=== PATIENT | female | born 1950 | race Caucasian/White ===

== ENCOUNTER 2017-09-18 19:33 | Emergency (ER) | payer OTHER ==
[2017-09-18] MEDS ORDERED: TETANUS & DIPHTHERIA TOX,ADULT 0.5 ML VIAL ONE (20:17)
[2017-09-18] MEDS ORDERED: LIDOCAINE 1% 20 ML MDV ONE (20:17)
[2017-09-18] MEDS ORDERED: DOXYCYCLINE 100 MG CAP PO ONE (20:38)
--- NOTE | 2017-09-18 20:43 | EDPHYS ---
Physician Documentation [facility] Name: Chiara Reyes Age: 67 yrs Sex: Female : 1950 Arrival Date: 09/18/2017 Time: 19:36 Bed 9 Private MD: Sebastian Cormier B ED Physician Arley Webb HPI: 09/18 20:22 This 67 yrs old Female presents to ER via Ambulatory with complaints of snw Finger Injury, Fish hook. 20:22 Trauma demographics: Location of Injury: The injury occurred [facility]. snw Historical: - Allergies: 19:55 Aspirin; lk1 - PMHx: 19:55 Glaucoma; Hepatitis; lk1 - PSHx: 19:55 Hysterectomy; right shoulder; Carpal Tunnel Repair; Breast biopsy; lk1 - Immunization history:: Adult Immunizations up to date, Last tetanus immunization: > 10 years ago. - Social history:: Smoking status: Patient/guardian denies using tobacco. ROS: 20:22 Constitutional: Negative for fever, chills, and weight loss, Eyes: Negative for injury, snw pain, redness, and discharge, ENT: Negative for injury, pain, and discharge, Neck: Negative for injury, pain, and swelling, Cardiovascular: Negative for chest pain, palpitations, and edema, Respiratory: Negative for shortness of breath, cough, wheezing, and pleuritic chest pain, Abdomen/GI: Negative for abdominal pain, nausea, vomiting, diarrhea, and constipation, Back: Negative for injury and pain, : Negative for injury, bleeding, discharge, and swelling, MS/Extremity: Negative for injury and deformity, Neuro: Negative for headache, weakness, numbness, tingling, and seizure, Psych: Negative for depression, anxiety, suicide ideation, homicidal ideation, and hallucinations. 20:22 Skin: Positive for foreign body to right thumb. Exam: 20:21 Constitutional: This is a well developed, well nourished patient who is awake, alert, snw and in no acute distress. Head/Face: Normocephalic, atraumatic. Eyes: Pupils equal round and reactive to light, extra-ocular motions intact. Lids and lashes normal. Conjunctiva and sclera are non-icteric and not injected. Cornea within normal limits. Periorbital areas with no swelling, redness, or edema. ENT: Nares patent. No nasal discharge, no septal abnormalities noted. Tympanic membranes are normal and external auditory canals are clear. Oropharynx with no redness, swelling, or masses, exudates, or evidence of obstruction, uvula midline. Mucous membranes moist. Neck: Trachea midline, no thyromegaly or masses palpated, and no cervical lymphadenopathy. Supple, full range of motion without nuchal rigidity, or vertebral point tenderness. No Meningismus. Chest/axilla: Normal chest wall appearance and motion. Nontender with no deformity. No lesions are appreciated. Cardiovascular: Regular rate and rhythm with a normal S1 and S2. No gallops, murmurs, or rubs. Normal PMI, no JVD. No pulse deficits. Respiratory: Lungs have equal breath sounds bilaterally, clear to auscultation and percussion. No rales, rhonchi or wheezes noted. No increased work of breathing, no retractions or nasal flaring. Abdomen/GI: Soft, non-tender, with normal bowel sounds. No distension or tympany. No guarding or rebound. No evidence of tenderness throughout. Back: No spinal tenderness. No costovertebral tenderness. Full range of motion. MS/ Extremity: Pulses equal, no cyanosis. Neurovascular intact. Full, normal range of motion. Neuro: Awake and alert, GCS 15, oriented to person, place, time, and situation. Cranial nerves II-XII grossly intact. Motor strength 5/5 in all extremities. Sensory grossly intact. Cerebellar exam normal. Normal gait. 20:21 Skin: Appearance: normal except for affected area, injury, puncture(s), that are superficial, of the palmar aspect of distal phalanx of right thumb. Vital Signs: 19:56 BP 175 / 90; Pulse 76; Resp 15; Temp 98.0(TE); Pulse Ox 96% on R/A; Weight 72.57 kg lk1 (R); Height 5 ft. 3 in. (160.02 cm) (R); Pain 4/10; 19:56 Body Mass Index 28.34 (72.57 kg, 160.02 cm) lk1 Procedures: 20:24 Foreign Body Removal: a fishhook, from the right palmar aspect of distal phalanx of snw right thumb, by needle, The patient tolerated the removal well. MDM: 20:14 Patient medically screened. sn 20:23 Data reviewed: vital signs, nurses notes. Data interpreted: Pulse oximetry: on room air snw is 96 %. Interpretation: acceptable. Counseling: I had a detailed discussion with the patient and/or guardian regarding: the historical points, exam findings, and any diagnostic results supporting the discharge/admit diagnosis, the presence of at least one elevated blood pressure reading (>120/80) during this emergency department visit, the need for outpatient follow up, for definitive care, to return to the emergency department if symptoms worsen or persist or if there are any questions or concerns that arise at home. Special discussion: I discussed in detail with the patient the higher chance of wound infection based on his presenting history. Based on the history and exam findings, there is no indication for further emergent testing or inpatient evaluation. I discussed with the patient/guardian the need to see the primary care provider for further evaluation of the symptoms. Administered Medications: 20:34 Drug: Tetanus-Diphtheria Toxoid Adult 0.5 ml {[employer]: [employer]. Exp: aj1 12/04/2019. Lot #: [id number]. } Route: IM; Site: right deltoid; 20:56 Follow up: Response: No adverse reaction aj1 20:34 Drug: Lidocaine (1 %) 5 mg {Note: Given by Luna Felix NP.} Route: Infiltration; aj1 20:56 Follow up: Response: No adverse reaction aj1 20:45 Drug: Doxycycline 100 mg Route: PO; aj1 20:56 Follow up: Response: No adverse reaction aj Disposition: 09/18/17 20:43 Discharged to Home. Impression: Puncture wound with foreign body of finger without damage to nail. - Condition is Stable. - Discharge Instructions: Fish Hook Removal. - Prescriptions for Ultram 50 mg Oral Tablet - take 1 tablet by ORAL route every 6 hours As needed; 20 tablet. Doxycycline Hyclate 100 mg Oral Tablet - take 1 tablet by ORAL route every 12 hours; 20 tablet. - Medication Reconciliation Form, Thank You Letter, Antibiotic Education, Prescription Opioid Use form. - Follow up: Sebastian Cormier; When: 2 - 3 days; Reason: Recheck today's complaints, Continuance of care, Re-evaluation by your physician. Follow up: Emergency Department; When: As needed; Reason: Worsening of condition. Addendum: 09/21/2017 07:41 Co-signature as Attending Physician, Arley Webb MD I agree with the assessment and c benton plan of care. Signatures: Leelee Pardo, RN RN aj1 Arley Webb MD MD cha Therrien, Shelly, TELEGRAPHIC SERVICE DISPATCHER-C TELEGRAPHIC SERVICE DISPATCHER-Csnw Gail King, RN RN lk1 Corrections: (The following items were deleted from the chart) 09/18 20:56 20:43 09/18/2017 20:43 Discharged to Home. Impression: Puncture wound with foreign body aj1 of finger without damage to nail. Condition is Stable. Discharge Instructions: Fish Hook Removal. Prescriptions for Ultram 50 mg Oral Tablet - take 1 tablet by ORAL route every 6 hours As needed; 20 tablet, Doxycycline Hyclate 100 mg Oral Tablet - take 1 tablet by ORAL route every 12 hours; 20 tablet. and Forms are Medication Reconciliation Form, Thank You Letter, Antibiotic Education, Prescription Opioid Use. Follow up: Sebastian Cormier; When: 2 - 3 days; Reason: Recheck today's complaints, Continuance of care, Re-evaluation by your physician. Follow up: Emergency Department; When: As needed; Reason: Worsening of condition. snw
--- NOTE | 2017-09-18 20:43 | ER ---
Nurse's Notes [facility] Name: Chiara Reyes Age: 67 yrs Sex: Female : 1950 Arrival Date: 09/18/2017 Time: 19:36 Bed 9 Private MD: Sebastian Cormier B Diagnosis: Puncture wound with foreign body of finger without damage to nail Presentation: 09/18 19:53 Presenting complaint: Patient states: "I stabbed the hook in my thumb when I was lk1 fishing". Transition of care: patient was not received from another setting of care. Onset of symptoms was September 18, 2017 at 18:45. Initial Sepsis Screen: Does the patient meet any 2 criteria? No. Patient's initial sepsis screen is negative. Does the patient have a suspected source of infection? No. Patient's initial sepsis screen is negative. Care prior to arrival: None. 19:53 Method Of Arrival: Ambulatory lk1 19:53 Acuity: MARY ELLEN 4 lk1 Triage Assessment: 19:56 General: Appears in no apparent distress. Behavior is calm, cooperative, appropriate lk1 for age. Pain: Complains of pain in palmar aspect of distal phalanx of right thumb Pain currently is 4 out of 10 on a pain scale. Musculoskeletal: Swelling absent. Injury Description: Puncture. Historical: - Allergies: 19:55 Aspirin; lk1 - PMHx: 19:55 Glaucoma; Hepatitis; lk1 - PSHx: 19:55 Hysterectomy; right shoulder; Carpal Tunnel Repair; Breast biopsy; lk1 - Immunization history:: Adult Immunizations up to date, Last tetanus immunization: > 10 years ago. - Social history:: Smoking status: Patient/guardian denies using tobacco. Screenin:52 Abuse screen: Denies threats or abuse. Denies injuries from another. Nutritional aj1 screening: No deficits noted. Tuberculosis screening: No symptoms or risk factors identified. 20:56 Fall Risk None identified. aj1 Assessment: 20:52 General: Appears in no apparent distress. uncomfortable, Behavior is calm, cooperative, aj1 appropriate for age. Pain: Complains of pain in palmar aspect of distal phalanx of right thumb. Neuro: Level of Consciousness is awake, alert, obeys commands, Oriented to person, place, time, situation, Speech is normal, Facial symmetry appears normal. Cardiovascular: Patient's skin is warm and dry. Respiratory: Airway is patent Respiratory effort is even, unlabored, Respiratory pattern is regular, symmetrical. GI: No signs and/or symptoms were reported involving the gastrointestinal system. : No signs and/or symptoms were reported regarding the genitourinary system. EENT: No signs and/or symptoms were reported regarding the EENT system. Derm: Skin is pink, warm \\T\\ dry. Musculoskeletal: Range of motion: intact in all extremities. Injury Description: Foreign body is located palmar aspect of distal phalanx of right thumb is fish hook. Vital Signs: 19:56 BP 175 / 90; Pulse 76; Resp 15; Temp 98.0(TE); Pulse Ox 96% on R/A; Weight 72.57 kg lk1 (R); Height 5 ft. 3 in. (160.02 cm) (R); Pain 4/10; 19:56 Body Mass Index 28.34 (72.57 kg, 160.02 cm) lk1 ED Course: 19:36 Patient arrived in ED. es 19:36 Sebastian Cormier MD is Private Physician. es 19:54 Triage completed. lk1 19:58 Arm band placed on left wrist. lk1 19:59 Leelee Pardo RN is Primary Nurse. aj1 20:13 Yanique Felix FNP-C is PHCP. snw 20:13 Arley Webb MD is Attending Physician. snw 20:43 Sebastian Cormier MD is Referral Physician. snw 20:52 Patient has correct armband on for positive identification. Call light in reach. aj1 20:52 No provider procedures requiring assistance completed. Patient did not have IV access aj1 during this emergency room visit. Wound care: to puncture located on palmar aspect of distal phalanx of right thumb was cleaned with Hibiclens, dressed with 4X4s. Administered Medications: 20:34 Drug: Tetanus-Diphtheria Toxoid Adult 0.5 ml {[place]: [employer]. Exp: aj1 12/04/2019. Lot #: [id number]. } Route: IM; Site: right deltoid; 20:56 Follow up: Response: No adverse reaction aj1 20:34 Drug: Lidocaine (1 %) 5 mg {Note: Given by Luna Felix NP.} Route: Infiltration; aj1 20:56 Follow up: Response: No adverse reaction aj1 20:45 Drug: Doxycycline 100 mg Route: PO; aj1 20:56 Follow up: Response: No adverse reaction aj1 Outcome: 20:43 Discharge ordered by . anusha 20:52 Discharged to home ambulatory. aj1 20:52 Condition: good 20:52 Discharge instructions given to patient, Instructed on discharge instructions, follow up and referral plans. medication usage, Demonstrated understanding of instructions, follow-up care, medications, Prescriptions given X 2. 20:56 Patient left the ED. aj1 Signatures: Leelee Pardo, RN RN aj1 Yanique Felix, TELEVISION CABINET FINISHER-C TELEVISION CABINET FINISHER-Csnw Elenita Lizarraga Leah, RN RN lk1
[2017-09-18 21:19] VITALS: BP 175/90; TEMP 98; O2SAT 96
== END 2017-09-18 20:56 | disposition home or self-care (01) ==
LOC: ER 19:33
DX: S61.041A Puncture wound with foreign body of right thumb without damage to nail, initial encounter (principal); W26.8XXA Contact with other sharp object(s), not elsewhere classified, initial encounter; W45.8XXA Other foreign body or object entering through skin, initial encounter; Y93.89 Activity, other specified; Y92.832 Beach as the place of occurrence of the external cause; Z23 Encounter for immunization
CPT/HCPCS: 90714; 99283

== ENCOUNTER 2018-05-29 09:43 | Observation (INO) | payer OTHER ==
--- OUTSIDE RECORDS SUMMARY | 2018-05-29 09:45 | XMS REPORT | Clinical Summary ---
:1950 Author Organization [facility] Address [address] [place] [address] Care Team Providers Name Role Phone Sebastian Cormier MD Primary Care Provider Allergies Active Allergy Reactions Severity Noted Date Comments Aspirin Hives 02/11/2018 Medications Medication Sig Dispensed Refills Start Date End Date Status timolol (TIMOPTIC) 2 (two) 0 01/18/2018 Active 0.5 % ophthalmic times daily solution . brimonidine Apply to 0 Active tartrate/timolol eye(s) 2 (COMBIGAN OPHT) (two) times daily. pantoprazole Take 40 mg 0 12/28/2017 03/04/2018 Discontinued (PROTONIX) 40 MG by mouth tablet daily . rifAXIMin 550 mg Tab Take 550 mg 0 03/04/2018 Discontinued by mouth 2 (two) times daily. 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 We will treat with Vosevi for 12 weeks (Among the 22 patients who had a prior treatment failure with an NS5A inhibitor -containing regimen, 91% (20/22) achieved SVR); Discontinue PPI during the therapy Other cirrhosis of liver 02/11/2018 Last Assessment & Plan: Not biopsy proven. 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 Compensated. Will send labs to exclude other causes of liver disease, and will check labs to calculate MELD score. Will review MRI done outside. Advised total abstinence from alcohol. Portal hypertension 02/11/2018 Last Assessment & Plan: Manifested by thrombocytopenia, and small esophageal varices. Will continue have variceal screening with Dr. Zepeda as per guidelines. Screening for cancer 02/11/2018 Last Assessment & Plan: Cirrhosis, regardless of etiology, is a risk factor for development of hepatocellular carcinoma. The annual incidence of HCC varies from 1.5-7%. Thus, we recommend surveillance for HCC be performed using contrast MRI or CT imaging and alphafetoprotein every 6 months. Screening for endocrine/metabolic/immunity disorders 02/11/2018 Last Assessment & Plan: Serological tests will be completed to determine the presence of immunity to hepatitis A and B. If found susceptible she will be referred to her primary care provider to consider the administration of the appropriate vaccines. Chronic fatigue 02/11/2018 Encounters Date Type Specialty Care Team Description 05/25/2018 Telephone Hepatology Rigo Harmon RESCHEDULE APPT 04/07/2018 Office Visit Hepatology Irene Navarro MD Cirrhosis of liver without ascites, unspecified hepatic cirrhosis type (HCC) ( Primary Dx); Elle Meza, Elevated AFP; PA-C Chronic hepatitis C without hepatic coma (HCC); Screening for cancer 03/09/2018 Telephone Hepatology Rigo Harmon CHANGE TREATMENT SCHEDULE 03/05/2018 Telephone Hepatology Sim Germain, result and to start HCV BLEACH RANGE OPERATOR therapy 03/04/2018 Office Visit Hepatology Irene Navarro MD Chronic hepatitis C without hepatic coma (HCC) (Primary Dx); Sim Germain, Screening for cancer; BLEACH RANGE OPERATOR Screening for endocrine/metabolic/immunity disorders; Other cirrhosis of liver (HCC) 03/03/2018 Telephone Hepatology Rigo Harmon Hepatitis C 03/03/2018 Telephone Hepatology Elle Meza, Follow-up PA-C 02/22/2018 Telephone Hepatology Rigo Harmon VOSEVI DELIVERY 02/19/2018 Abstract Hepatology Rigo Harmon 02/11/2018 Office Visit Hepatology Irene Navarro MD Chronic hepatitis C without hepatic coma (HCC); Other cirrhosis of liver (HCC); Portal hypertension (HCC); Screening for cancer; Screening for endocrine/metabolic/immunity disorders; Chronic fatigue 02/11/2018 Telephone Hepatology Rigo Harmon Hepatitis C 02/02/2018 Telephone Hepatology Catherine Ching Appointment after 05/28/2017 Family History Medical History Relation Name Comments Leukemia Brother Breast cancer Mother Relation Name Status Comments Brother Mother Social History Tobacco Use Types Packs/Day Years Used Date Former Smoker Smokeless Tobacco: Never Used Alcohol Use Drinks/Week oz/Week Comments Yes Sex Assigned at Date Recorded Not on file Job Start Date Occupation Industry Not on file Not on file Not on file Travel History Travel Start Travel End No recent travel history available. Last Filed Vital Signs Vital Sign Reading Time Taken Blood Pressure 161/87 04/07/2018 12:14 PM [employer] Pulse 60 04/07/2018 12:14 PM [employer] Temperature 36.7 C (98.1 F) 04/07/2018 12:14 PM [employer] Respiratory Rate 17 04/07/2018 12:14 PM [employer] Oxygen Saturation 97% 04/07/2018 12:14 PM [employer] Inhaled Oxygen Concentration - - Weight 72.3 kg (159 lb 4.8 oz) 04/07/2018 12:14 PM [employer] Height 160 cm (5' 3") 04/07/2018 12:14 PM [employer] Body Mass Index 28.22 04/07/2018 12:14 PM [employer] Plan of Treatment Date Type Specialty Care Team Description 06/10/2018 Office Visit Hepatology Resource, [facility] 09/01/2018 Office Visit Hepatology Resource, [facility] 11/24/2018 Office Visit Hepatology Resource, [facility] Health Maintenance Due Date Last Done Comments INFLUENZA VACCINE 02/01/2018 Procedures Procedure Name Priority Date/Time Associated Diagnosis Comments BASIC METABOLIC PANEL Routine 05/28/2018 3:41 Elevated AFP Results for this (7) PM [employer] Cirrhosis of liver procedure are in without ascites, the results unspecified hepatic section. cirrhosis type (HCC) Chronic hepatitis C without hepatic coma (HCC) Screening for cancer HEPATIC FUNCTION PANEL Routine 05/28/2018 3:41 Elevated AFP Results for this PM [employer] Cirrhosis of liver procedure are in without ascites, the results unspecified hepatic section. cirrhosis type (HCC) Chronic hepatitis C without hepatic coma (HCC) Screening for cancer CBC W/PLT COUNT & AUTO Routine 05/28/2018 3:41 Elevated AFP Results for this DIFFERENTIAL PM [employer] Cirrhosis of liver procedure are in without ascites, the results unspecified hepatic section. cirrhosis type (HCC) Chronic hepatitis C without hepatic coma (HCC) Screening for cancer PROTHROMBIN TIME/INR Routine 05/28/2018 3:41 Elevated AFP Results for this PM [employer] Cirrhosis of liver procedure are in without ascites, the results unspecified hepatic section. cirrhosis type (HCC) Chronic hepatitis C without hepatic coma (HCC) Screening for cancer BASIC METABOLIC PANEL Routine 04/30/2018 9:41 Elevated AFP Results for this (7) AM [employer] DEVELOPER Cirrhosis of liver procedure are in without ascites, the results unspecified hepatic section. cirrhosis type (HCC) Chronic hepatitis C without hepatic coma (HCC) Screening for cancer HEPATIC FUNCTION PANEL Routine 04/30/2018 9:41 Elevated AFP Results for this AM [employer] Cirrhosis of liver procedure are in without ascites, the results unspecified hepatic section. cirrhosis type (HCC) Chronic hepatitis C without hepatic coma (HCC) Screening for cancer CBC W/PLT COUNT & AUTO Routine 04/30/2018 9:41 Elevated AFP Results for this DIFFERENTIAL AM [employer]EL[employer] Cirrhosis of liver procedure are in without ascites, the results unspecified hepatic section. cirrhosis type (HCC) Chronic hepatitis C without hepatic coma (HCC) Screening for cancer PROTHROMBIN TIME/INR Routine 04/30/2018 9:41 Elevated AFP Results for this AM [employer]EL[employer] Cirrhosis of liver procedure are in without ascites, the results unspecified hepatic section. cirrhosis type (HCC) Chronic hepatitis C without hepatic coma (HCC) Screening for cancer ALPHA FETOPROTEIN, L3 Routine 04/30/2018 9:41 Elevated AFP Results for this PERCENT AM [employer] DEVEL[employer] Cirrhosis of liver procedure are in without ascites, the results unspecified hepatic section. cirrhosis type (HCC) Chronic hepatitis C without hepatic coma (HCC) Screening for cancer BASIC METABOLIC PANEL Routine 04/02/2018 9:13 Chronic hepatitis C Results for this (7) AM [employer] DEVELOPER without hepatic coma procedure are in (HCC) the results section. HEPATIC FUNCTION PANEL Routine 04/02/2018 9:13 Chronic hepatitis C Results for this AM [employer] DEVELOPER without hepatic coma procedure are in (HCC) the results section. CBC W/PLT COUNT & AUTO Routine 04/02/2018 9:13 Chronic hepatitis C Results for this DIFFERENTIAL AM [employer] DEVELOPER without hepatic coma procedure are in (HCC) the results section. PROTHROMBIN TIME/INR Routine 04/02/2018 9:13 Chronic hepatitis C Results for this AM [employer] DEVELOPER without hepatic coma procedure are in (HCC) the results section. HEPATITIS C PCR, Routine 04/02/2018 9:13 Chronic hepatitis C Results for this QUANTITATIVE AM [employer] DEVELOPER without hepatic coma procedure are in (HCC) the results section. CBC W/PLT COUNT & AUTO Routine 03/04/2018 5:09 Chronic hepatitis C Results for this DIFFERENTIAL PM CDT without hepatic coma procedure are in (HCC) the results section. CBC W/PLT COUNT & AUTO Routine 03/04/2018 5:09 Chronic hepatitis C Results for this DIFFERENTIAL PM CDT without hepatic coma procedure are in (HCC) the results section. ALPHA FETOPROTEIN Routine 03/04/2018 3:14 Chronic hepatitis C Results for this (AFP), TUMOR MARKER PM CDT without hepatic coma procedure are in (HCC) the results section. PROTHROMBIN TIME/INR Routine 03/04/2018 3:14 Chronic hepatitis C Results for this PM CDT without hepatic coma procedure are in (HCC) the results section. HEPATIC FUNCTION PANEL Routine 03/04/2018 3:14 Chronic hepatitis C Results for this PM CDT without hepatic coma procedure are in (HCC) the results section. BASIC METABOLIC PANEL Routine 03/04/2018 3:14 Chronic hepatitis C Results for this (7) PM CDT without hepatic coma procedure are in (HCC) the results section. CBC W/PLT COUNT & AUTO Routine 02/11/2018 1:13 Chronic hepatitis C Results for this DIFFERENTIAL PM CDT without hepatic coma procedure are in (HCC) the results Other cirrhosis of section. liver (HCC) Portal hypertension (HCC) Screening for cancer Screening for endocrine/metabolic/ immunity disorders LIVER FIBROSIS, Routine 02/11/2018 1:13 Chronic hepatitis C FIBROTEST-ACTITEST PM CDT without hepatic coma PANEL (HCC) Other cirrhosis of liver (HCC) HIV-1 ANTIGEN WITH Routine 02/11/2018 1:13 Chronic hepatitis C Results for this HIV-1/2 ANTIBODY PM CDT without hepatic coma procedure are in (HCC) the results Other cirrhosis of section. liver (HCC) TSH Routine 02/11/2018 1:13 Chronic fatigue Results for this PM CDT procedure are in the results section. HEPATITIS C GENOTYPE Routine 02/11/2018 1:13 Chronic hepatitis C Results for this PM CDT without hepatic coma procedure are in (HCC) the results Other cirrhosis of section. liver (HCC) Portal hypertension (HCC) Screening for cancer Screening for endocrine/metabolic/ immunity disorders HEPATITIS C PCR, Routine 02/11/2018 1:13 Chronic hepatitis C Results for this QUANTITATIVE PM CDT without hepatic coma procedure are in (HCC) the results Other cirrhosis of section. liver (HCC) Portal hypertension (HCC) Screening for cancer Screening for endocrine/metabolic/ immunity disorders ALPHA FETOPROTEIN Routine 02/11/2018 1:13 Chronic hepatitis C Results for this (AFP), TUMOR MARKER PM CDT without hepatic coma procedure are in (HCC) the results Other cirrhosis of section. liver (HCC) Portal hypertension (HCC) Screening for cancer Screening for endocrine/metabolic/ immunity disorders MITOCHONDRIA M2 Routine 02/11/2018 1:13 Chronic hepatitis C Results for this ANTIBODY (IGG) PM CDT without hepatic coma procedure are in (HCC) the results Other cirrhosis of section. liver (HCC) Portal hypertension (HCC) Screening for cancer Screening for endocrine/metabolic/ immunity disorders ACTIN (SMOOTH MUSCLE) Routine 02/11/2018 1:13 Chronic hepatitis C Results for this ANTIBODY, IGG PM CDT without hepatic coma procedure are in (HCC) the results Other cirrhosis of section. liver (HCC) Portal hypertension (HCC) Screening for cancer Screening for endocrine/metabolic/ immunity disorders ANTI-NUCLEAR ANTIBODY Routine 02/11/2018 1:13 Chronic hepatitis C Results for this (KELSIE) PM CDT without hepatic coma procedure are in (HCC) the results Other cirrhosis of section. liver (HCC) Portal hypertension (HCC) Screening for cancer Screening for endocrine/metabolic/ immunity disorders CERULOPLASMIN Routine 02/11/2018 1:13 Chronic hepatitis C Results for this PM CDT without hepatic coma procedure are in (HCC) the results Other cirrhosis of section. liver (HCC) Portal hypertension (HCC) Screening for cancer Screening for endocrine/metabolic/ immunity disorders [id number], Routine 02/11/2018 1:13 Chronic hepatitis C Results for this SERUM PM CDT without hepatic coma procedure are in (HCC) the results Other cirrhosis of section. liver (HCC) Portal hypertension (HCC) Screening for cancer Screening for endocrine/metabolic/ immunity disorders FERRITIN Routine 02/11/2018 1:13 Chronic hepatitis C Results for this PM CDT without hepatic coma procedure are in (HCC) the results Other cirrhosis of section. liver (HCC) Portal hypertension (HCC) Screening for cancer Screening for endocrine/metabolic/ immunity disorders IRON, TIBC, % SAT. Routine 02/11/2018 1:13 Chronic hepatitis C Results for this (WITHOUT FERRITIN) PM CDT without hepatic coma procedure are in (HCC) the results Other cirrhosis of section. liver (HCC) Portal hypertension (HCC) Screening for cancer Screening for endocrine/metabolic/ immunity disorders HEPATITIS C ANTIBODY Routine 02/11/2018 1:13 Chronic hepatitis C Results for this PM CDT without hepatic coma procedure are in (HCC) the results Other cirrhosis of section. liver (HCC) Portal hypertension (HCC) Screening for cancer Screening for endocrine/metabolic/ immunity disorders HEPATITIS B CORE Routine 02/11/2018 1:13 Chronic hepatitis C Results for this ANTIBODY, TOTAL PM CDT without hepatic coma procedure are in (HCC) the results Other cirrhosis of section. liver (HCC) Portal hypertension (HCC) Screening for cancer Screening for endocrine/metabolic/ immunity disorders HEPATITIS B SURFACE Routine 02/11/2018 1:13 Chronic hepatitis C Results for this ANTIBODY PM CDT without hepatic coma procedure are in (HCC) the results Other cirrhosis of section. liver (HCC) Portal hypertension (HCC) Screening for cancer Screening for endocrine/metabolic/ immunity disorders HEPATITIS B SURFACE Routine 02/11/2018 1:13 Chronic hepatitis C Results for this ANTIGEN PM CDT without hepatic coma procedure are in (HCC) the results Other cirrhosis of section. liver (HCC) Portal hypertension (HCC) Screening for cancer Screening for endocrine/metabolic/ immunity disorders HEPATITIS A ANTIBODY, Routine 02/11/2018 1:13 Chronic hepatitis C Results for this IGM PM CDT without hepatic coma procedure are in (HCC) the results Other cirrhosis of section. liver (HCC) Portal hypertension (HCC) Screening for cancer Screening for endocrine/metabolic/ immunity disorders HEPATITIS A ANTIBODY, Routine 02/11/2018 1:13 Chronic hepatitis C Results for this IGG PM CDT without hepatic coma procedure are in (HCC) the results Other cirrhosis of section. liver (HCC) Portal hypertension (HCC) Screening for cancer Screening for endocrine/metabolic/ immunity disorders PROTHROMBIN TIME/INR Routine 02/11/2018 1:13 Chronic hepatitis C Results for this PM CDT without hepatic coma procedure are in (HCC) the results Other cirrhosis of section. liver (HCC) Portal hypertension (HCC) Screening for cancer Screening for endocrine/metabolic/ immunity disorders CBC W/PLT COUNT & AUTO Routine 02/11/2018 1:13 Chronic hepatitis C Results for this DIFFERENTIAL PM CDT without hepatic coma procedure are in (HCC) the results Other cirrhosis of section. liver (HCC) Portal hypertension (HCC) Screening for cancer Screening for endocrine/metabolic/ immunity disorders BILIRUBIN, DIRECT Routine 02/11/2018 1:13 Chronic hepatitis C Results for this PM CDT without hepatic coma procedure are in (HCC) the results Other cirrhosis of section. liver (HCC) Portal hypertension (HCC) Screening for cancer Screening for endocrine/metabolic/ immunity disorders COMPREHENSIVE Routine 02/11/2018 1:13 Chronic hepatitis C Results for this METABOLIC PANEL PM CDT without hepatic coma procedure are in (HCC) the results Other cirrhosis of section. liver (HCC) Portal hypertension (HCC) Screening for cancer Screening for endocrine/metabolic/ immunity disorders after 05/28/2017 Results Pro-time/INR (05/28/2018 3:41 PM BACKEND JAVA DEVELOPER)Only the most recent of5 resultswithin the time period is included. INR 1.1 [facility] Comment: Reference Range 0.9-1.1 Moderate-intensity Warfarin Therapy 2.0-3.0 Higher-intensity Warfarin Therapy 3.0-4.0 PT 11.7 (H) 9.0 - 11.5 sec [facility] Comment: For more information on this test, go to: http://education.[employer]/faq/JIY656 Specimen Blood Narrative Performed At FASTING:NO [facility] FASTING: NO Resulting Agency Comment Performing Organization Information: Site ID: [id number] Name: [facility] Address: [address] [place] [phone] Director: Dina Gan Performing Organization Address City/State/[facility] Cent[facility] Phone Number [facility] [address] [place] [address] [facility] CBC with platelet count + automated diff (05/28/2018 3:41 PM BACKEND JAVA DEVELOPER)Only the most recent of3 resultswithin the time period is included. WBC 6.5 3.8 - 10.8 Thousand/uL [facility] RBC 3.78 (L) 3.80 - 5.10 Million/uL [facility] Hemoglobin 13.0 11.7 - 15.5 g/dL [facility] Hematocrit 37.6 35.0 - 45.0 % [facility] MCV 99.5 80.0 - 100.0 fL [facility] MCH 34.4 (H) 27.0 - 33.0 pg [facility] MCHC 34.6 32.0 - 36.0 g/dL [facility] RDW 11.6 11.0 - 15.0 % [facility] Platelets 97 (L) 140 - 400 Thousand/uL [facility] MPV 11.0 7.5 - 12.5 fL [facility] # Neutros 2,347 1,500 - 7,800 cells/uL [facility] # Lymphs 3,172 850 - 3,900 cells/uL [facility] # Monos 696 200 - 950 cells/uL [facility] # Eos 228 15 - 500 cells/uL [facility] # Baso 59 0 - 200 cells/uL [facility] % Neutros 36.1 % [facility] % Lymphs 48.8 % [facility] % Monos 10.7 % [facility] % Eos 3.5 % [facility] % Baso 0.9 % [facility] Specimen Blood Narrative Performed At FASTING:NO [facility] FASTING: NO Resulting Agency Comment Performing Organization Information: Site ID: [id number] Name: [facility] Address: [address] [place] [phone] Director: Dina Gan Performing Organization Address [facility] Centercowa Phone Number [facility] [address] [place] [address] [facility] Hepatic function panel (05/28/2018 3:41 PM BACKEND JAVA DEVELOPER)Only the most recent of4 resultswithin the time period is included. Protein, Total, Serum 7.6 6.1 - 8.1 g/dL [facility] Albumin 3.9 3.6 - 5.1 g/dL [facility] GLOBULIN ([facility]) 3.7 1.9 - 3.7 g/dL (calc) [facility] Albumin Globulin Ratio 1.1 1.0 - 2.5 (calc) [facility] Bilirubin, Total 1.8 (H) 0.2 - 1.2 mg/dL [facility] Bilirubin, Direct 0.6 (H) < OR=0.2 mg/dL [facility] Bilirubin, Indirect 1.2 0.2 - 1.2 mg/dL (calc) [facility] Alkaline Phosphatase, S 105 33 - 130 U/L [facility] AST (SGOT) 34 10 - 35 U/L [facility] ALT (SGPT) 19 6 - 29 U/L [facility] Specimen Blood Narrative Performed At FASTING:NO [facility] FASTING: NO Resulting Agency Comment Performing Organization Information: Site ID: [id number] Name: [facility] Address: [address] [place] [phone] Director: Dina Gan Performing Organization Address [facility] Phone Number [employer] [address] [place] [address] [facility] Basic Metabolic Panel (05/28/2018 3:41 PM BACKEND JAVA DEVELOPER)Only the most recent of4 resultswithin the time period is included. Glucose 100 65 - 139 mg/dL [facility] Comment: Non-fasting reference interval BUN 13 7 - 25 mg/dL [facility] Creatinine 0.56 0.50 - 0.99 mg/dL [facility] Comment: For patients >49 years of age, the reference limit for Creatinine is approximately 13% higher for people identified as -Trinidadian. eGFR If NonAfricn Am 97 > OR=60 mL/min/1.73m2 [facility] eGFR If Africn Am 113 > OR=60 mL/min/1.73m2 [facility] BUN/Creatinine Ratio NOT APPLICABLE 6 - 22 (calc) [facility] Sodium 135 135 - 146 mmol/L [facility] Potassium, Serum 4.0 3.5 - 5.3 mmol/L [facility] Chloride 103 98 - 110 mmol/L [facility] Carbon Dioxide, Total 27 20 - 32 mmol/L [facility] Calcium, Serum 9.2 8.6 - 10.4 mg/dL [facility] Specimen Blood Narrative Performed At FASTING:NO [facility] FASTING: NO Resulting Agency Comment Performing Organization Information: Site ID: [id number] Name: [facility] Address: [address] [place] [phone] Director: Dina Gan Performing Organization Address City/State/Zipcode Phone Number [facility] [address] [place] [address] [facility] Alpha fetoprotein, L3 percent ([facility]) (04/30/2018 9:41 AM BACKEND JAVA DEVELOPER) AFP, Serum, Tumor Marker 19.8 (H) 1.6 - 4.5 ng/mL RAYEZ AFP-L3%, Serum 3.0 0.5 - 9.9 % [facility] Comment: The micro-total analysis system ([employer]) employs microchip capillary electrophoresis to quantitatively measure AFP and AFP-L3% by immunochemical techniques. The assay principle involves DNA-coupled antibodies and dye labeled antibodies, which react with proteins in liquid phase within the microchannels. Both analytes are quantified using laser-induced fluorescence. Instrument and associated reagents are supplied by [employer] [place], [place], [place]. Patients with elevated AFP-L3% values (>=10%) have been shown to have an increased risk of developing hepatocellular carcinoma (HCC). In a selected group of patients, the risk of developing HCC was 48.8% with an elevated AFP-L3% and was 7.0% with a negative AFP-L3% result. Limitations of Procedure: 1. The AFP-L3% value is not calculated when the AFP-L3 concentration is below 0.3 ng/mL. In such cases the AFP-L3% result field will indicate "NO VALUE DETERMINED" 2. Heterophilic antibodies in human serum can react with the immunoglobulins included in the assay components causing interference with in vitro immunoassays. Samples from patients routinely exposed to animals or animal serum products can demonstrate this type of interference and can potentially cause an anomalous result. The Victrix System has been formulated to minimize the risk of the interference; however, potential interactions between rare sera and ingredients can occur. 3. For diagnostic purposes, the results obtained from this assay should always be used and interpreted in conjunction with clinical examination, patient medical history, and other findings. 4. can cause high values of AFP-L3% and AFP is not interpretable in females. 5. AFP producing tumors other than HCC can show high values of AFP-L3% and AFP. 6. Samples from patients having acute hepatitis and fulminant hepatitis can show high values of AFP-L3% and AFP. 7. It is recommended that this assay be used in conjunction with imaging studies for clinical diagnosis. 8. Liver diseases caused by other etiologies such as alcoholic liver disease, hemachromatosis, Edson's disease, autoimmune hepatitis and steatohepatisis have not been studied with the assay. 9. The assay is linear for AFP concentration of 0.3 to 1000 ng/mL. 10. Values obtained with different assay methods or kits cannot be used interchangeably. Specimen Blood Narrative Performed At FASTING:NO [facility] FASTING: NO Resulting Agency Comment Performing Organization Information: Site ID: [id number] Name: [facility], Address: [address] [place] [phone] Director: Aleja Gross MD,PhD,MAXINE Performing Organization Address City/State/Zipcode Phone Number [facility] [address] [facility] [place] [phone] [facility] Hepatitis C RNA, Quantitative (04/02/2018 9:13 AM BACKEND JAVA DEVELOPER)Only the most recent of2 resultswithin the time period is included. Hep C Pcr, Quant <15 NOT DETECTED NOT DETECTED IU/mL [facility] HCV RNA, QUANTITATIVE <1.18 NOT DETECTED NOT DETECTED Log [facility] REAL TIME PCR ([facility]) IU/mL Comment: [facility]ST[facility] Comment: This test was performed using Real-Time Polymerase Chain Reaction. Reportable Range: 15 IU/mL to 100,000,000 IU/mL (1.18 Log IU/mL to 8.00 Log IU/mL). The analytical performance characteristics of this assay have been determined by [facility]. The modifications have not been cleared or approved by the FDA. This assay has been validated pursuant to the CLIA regulations and is used for clinical purposes. For more information on this test, go to: http://education.[employer]/faq/DCE95r2 (This link is being provided for informational/ educational purposes only.) Specimen Blood Narrative Performed At FASTING:YES [facility] FASTING: YES Resulting Agency Comment Performing Organization Information: Site ID: IG Name: [facility] Address: [address] [place] [id number] Director: Dr. Roger Ko Performing Organization Address City/State/Zipcode Phone Number [facility] [address] [place] [address] [facility] CBC with platelet count + automated diff (03/04/2018 5:09 PM CDT)Only the most recent of2 resultswithin the time period is included. WBC 6.9 3.5 - 10.5 K/L [facility] RBC 4.19 3.93 - 5.22 M/L [facility] Hemoglobin 14.8 11.2 - 15.7 GM/DL [facility] Hematocrit 44.8 34.1 - 44.9 % [facility] MCV 106.9 (H) 79.4 - 94.8 fL [facility] MCH 35.3 (H) 25.6 - 32.2 pg [facility] MCHC 33.0 32.2 - 35.5 GM/DL [facility] RDW 12.5 11.7 - 14.4 % [facility] Platelets 76 (L) 150 - 450 K/CU MM [facility] MPV 11.6 9.4 - 12.3 fL [facility] nRBC 0 0 - 0 /100 WBC [facility] % Neutros 39 % [facility] % Lymphs 44 % [facility] % Monos 11 % [facility] % Eos 5 % [facility] % Baso 1 % [facility] # Neutros 2.71 1.56 - 6.13 K/L [facility] # Lymphs 3.07 1.18 - 3.74 K/L [facility] # Monos 0.74 (H) 0.24 - 0.36 K/L [facility] # Eos 0.32 0.04 - 0.36 K/L [facility] # Baso 0.06 0.01 - 0.08 K/L [facility] Immature 0 0 - 1 % [facility] Specimen Blood Performing Organization Address City/State/Zipcode Phone Number [address] [address] [phone] [place] Alpha fetoprotein (AFP), tumor marker (03/04/2018 3:14 PM CDT)Only the most recent of2 resultswithin the time period is included. Alpha-Fetoprotein 63.9 (H) <10.0 ng/mL [facility] Specimen Blood Performing Organization Address City/[facility]/Zipcode Phone Number [address] [address] [place] Liver Fibrosis, FibroTest-ActiTest Panel (02/11/2018 1:13 PM CDT) Fibrosis Score [facility] Fibrosis Stage [facility] FIBROSIS INTERPRETATION ([facility]) [facility] Necroinflammat Activity Grade [facility] NECROINFLAMMAT INTERP ([facility]) [facility] Bilirubin, Total [facility] GGT [facility] ALT (SGPT) [facility] ALPHA 2 MACROGLOBULIN ([facility]) [facility] Haptoglobin [facility] Apolipoprotein A-1 [facility] Necroinflammat Activity Score [facility] Narrative Performed At Performing Organization Address [facility] Phone Number [facility] [place] [address] [place] [address] Hepatitis A antibody, IgG (02/11/2018 1:13 PM CDT) Hep A IgG Reactive (A) Nonreactive [facility] Specimen Blood Performing Organization Address [facility] Phone Number [address] [address] CENTER Mitochondrial Antibodies, M2 (02/11/2018 1:13 PM CDT) Mitochondria M2 Ab <20.0 See Note: U [facility] Comment: Reference Range: NEGATIVE:< OR=20.0 EQUIVOCAL: 20.1-24.9 POSITIVE:> OR=25.0 Specimen Blood Narrative Performed At Performing Lab [facility] [address] [address] Galileo Gross MD, PhD, MAXINE Performing Organization Address [facility] Phone Number [place] [address] [place] [address] Iron, TIBC, % sat. (without ferritin) (02/11/2018 1:13 PM CDT) Iron 218 (H) 40 - 160 ug/dL [facility] TIBC 343 250 - 450 ug/dL [facility] Iron % Saturation 64 (H) 20 - 55 % [facility] Specimen Blood Performing Organization Address [facility] Phone Number [address] [address] [phone] [place] HIV-1 Antigen with HIV-1/2 Antibody (02/11/2018 1:13 PM CDT) HIV-1 Antigen with HIV 1&2 NON-REACTIVE Nonreactive [facility] Specimen Blood Performing Organization Address City/State/Zipcode Phone Number [address] [address] [place] Hepatitis C antibody (02/11/2018 1:13 PM CDT) Hepatitis C Ab Reactive (A) Nonreactive [facility] Specimen Blood Performing Organization Address [facility] Phone Number [address] [address] [phone] [place] Actin (Smooth Muscle) Antibody, IgG (02/11/2018 1:13 PM CDT) Anti-Smooth Muscle Ab 26 (H) See Note: U [facility] Comment: [facility] Reference Range: <20 NEGATIVE > OR=20 POSITIVE Antibodies recognizing actin are the main component of smooth muscle antibodies associated with autoimmune liver disease. Actin antibodies are found in approximately 75% of patients with autoimmune hepatitis (AIH) type 1, approximately 65% of patients with autoimmune cholangitis, approximately 30% of patients with primary biliary cirrhosis, and approximately 2% of healthy people. High values are closely correlated with AIH type 1. Specimen Blood Narrative Performed At Performing Lab [facility] [address] [address] [place] [address] Galileo Gross MD, PhD, MAXINE Performing Organization Address [facility] Phone Number [place] [address] [facility] [address] [facility] [id number] (02/11/2018 1:13 PM CDT) A-1 Antitrypsin 178.80 90.00 - 200.00 mg/dL [facility] Specimen Blood Performing Organization Address City/[facility]/Zipcode Phone Number [address] [address] [place] Hepatitis A antibody, IgM (02/11/2018 1:13 PM CDT) Hep A IgM HEPATITIS A TEST NEGATIVE Nonreactive [facility] Specimen Blood Performing Organization Address City/[facility]/Zipcode Phone Number [address] [address] [place] Ceruloplasmin (02/11/2018 1:13 PM CDT) Ceruloplasmin 33 18 - 53 mg/dL [facility] Comment: Adults:Males: 18-36 mg/dL Females: 18-53 mg/dL Pediatrics:Males (mg/dL)Females (mg/dL) 0-30 Days 8-25 3-28 31 Days-11 Month [id number] 1-3 [id number] 4-6 [id number] 7-9 [id number] 10-12 [id number] 13-15 [id number] 16-18 [id number] The pediatric ranges are derived from the following criteria: Josh SJ, Luis Miguel JM, Brianne J et al Pediatric reference ranges for Acrj-0-Oddhbgyustsod and ceruloplasmin. Clin. Chem 1997; 43:S1999 Pediatric Reference Ranges, 2nd., [place] Joshet al. editors. [employer], [place], [place] 1997. Specimen Blood Narrative Performed At Performing Lab [facility] *SPL [facility] [place] [address], [address] [place] [phone] Luli Martinez MD, PhD Performing Organization Address City/State/Zipcode Phone Number [facility] [email or web address] [address] [facility]ORPOR[facility] [address] [facility] [place] [facility] Hepatitis B core antibody, total (02/11/2018 1:13 PM CDT) Hep B Core Total Ab NON-REACTIVE Nonreactive [facility] Specimen Blood Performing Organization Address City/State/Zipcode Phone Number [place] [id number] [place] [address] [phone] [place] Hepatitis C genotype (02/11/2018 1:13 PM CDT) HCV Genotype, LiPA 4 [facility] Comment: INCORPORATED The method used in this test is RT-PCR and reverse hybridization (Line Probe) of the 5' UTR and core region of the HCV genome. The analytical performance characteristics of this assay have been determined by [facility]. The modifications have not been cleared or approved by the FDA. This assay has been validated pursuant to the CLIA regulations and is used for clinical purposes. For additional information, please refer to http://education.[employer] /faq/HCVGenotyping (This link id being provided for informational/ educational purposes only.) Specimen Blood Narrative Performed At Performing Lab [facility] *QDID [facility] [address] [place] [phone] Uri Siegel MD Performing Organization Address [facility] Phone Number [place] [address] [place] [address] Hepatitis B surface antibody (02/11/2018 1:13 PM CDT) Hep B S Ab <8.0 <8.0 mIU/mL [facility] Specimen Blood Performing Organization Address [facility] Cent[facility]ode Phone Number [address] [address] [place] Hepatitis B surface antigen (02/11/2018 1:13 PM CDT) hepatitis B Surface Ag NON-REACTIVE Nonreactive [facility] Specimen Blood Performing Organization Address [facility] Phone Number [address] [address] [place] Anti-Nuclear Antibody (KELSIE) (02/11/2018 1:13 PM CDT) KELSIE Negative Negative [facility] Specimen Blood Narrative Performed At [facility] Test performed by IFA method. Test performed by IFA method. Performing Organization Address [facility]/State/Zipcode Phone Number [address] [address] [place] TSH (02/11/2018 1:13 PM CDT) TSH 2.44 0.35 - 4.94 uIU/mL [facility] Specimen Blood Performing Organization Address City/[facility]/Zipcode Phone Number [address] [address] [phone] [place] Ferritin (02/11/2018 1:13 PM CDT) Ferritin 554 (H) 5 - 275 ng/mL [facility] Specimen Blood Performing Organization Address City/State/Zipcode Phone Number [address] [address] [place] Bilirubin, direct (02/11/2018 1:13 PM CDT) Bilirubin, Direct 0.8 (H) 0.1 - 0.5 mg/dL [facility] Specimen Blood Performing Organization Address City/[facility] Phone Number [address] [address] [place] Comprehensive Metabolic Panel (02/11/2018 1:13 PM CDT) Protein, Total 9.0 (H) 6.0 - 8.3 gm/dL [facility] Albumin 3.6 3.5 - 5.0 g/dL [facility] Alkaline Phosphatase 141 40 - 150 U/L [facility] Total Bilirubin 1.7 (H) 0.2 - 1.2 mg/dL [facility] Sodium 139 136 - 145 meq/L [facility] Potassium 4.0 3.5 - 5.1 meq/L [facility] Chloride 106 98 - 107 meq/L [facility] CO2 27 22 - 29 meq/L [facility] BUN 11 7 - 21 mg/dL [facility] Creatinine 0.69 0.57 - 1.25 mg/dL [facility] Glucose 85 70 - 105 mg/dL [facility] Calcium 9.6 8.4 - 10.2 mg/dL [facility] AST 175 (H) 5 - 34 U/L [facility] ALT 125 (H) 6 - 55 U/L [facility] EGFR 85Comment: ESTIMATED GFR mL/min/1.73 sq m [facility] IS NOT ACCURATE [facility] CREATININE CLEARANCE IN PREDICTING GLOMERULAR FILTRATION RATE. ESTIMATED GFR IS NOT APPLICABLE FOR DIALYSIS PATIENTS. Specimen Blood Performing Organization Address City/State/Zipcode Phone Number [facility] [address] [place] [address] CENTER after 05/28/2017 Insurance Payer Benefit Plan / Group Subscriber ID Type Phone Address MEDICARE MEDICARE A B xxxxxxxxxxx Medicare ([place]) [place] [address]
--- OUTSIDE RECORDS SUMMARY | 2018-05-29 09:46 | XMS REPORT ---
:1950 Author Organization [facility] Address [address] [place] [address] Dr. Saunders. [address] [place] [id number] Care Team Providers Name Role Phone MATA JULIANNA JACKSON Unavailable Unavailable Problems This patient has no known problems. Allergies, Adverse Reactions, Alerts This patient has no known allergies or adverse reactions. Medications This patient has no known medications. Results Test Description Test Time Test Comments Text Results Atomic Results Result Comments ALPHA FETOPROTEIN (AFP), TUMOR MARKER 2018-03-04 19:13:00 Test Item Value Reference Range Comments ALPHA-FETOPROTEIN (BEAKER) (test ftgh=3372) 63.9 ng/mL <10.0 BASIC METABOLIC [id number] 17:33:00 Test Item Value Reference Range Comments SODIUM (BEAKER) (test 142 meq/L 136-145 kywo=539) POTASSIUM (BEAKER) (test 4.2 meq/L 3.5-5.1 Specimen slightly rydq=705) hemolyzed CHLORIDE (BEAKER) (test 110 meq/L 98-107 uhbg=738) CO2 (BEAKER) (test 25 meq/L 22-29 lnmd=645) BLOOD UREA NITROGEN 11 mg/dL 7-21 (BEAKER) (test wvpf=548) CREATININE (BEAKER) (test 0.74 mg/dL 0.57-1.25 Specimen slightly sdvi=766) hemolyzed GLUCOSE RANDOM (BEAKER) 98 mg/dL 70-105 (test gowv=724) CALCIUM (BEAKER) (test 9.3 mg/dL 8.4-10.2 jqic=719) EGFR (BEAKER) (test 79 mL/min/1.73 sq m ESTIMATED GFR IS NOT lbxu=0572) ACCURATE CREATININE CLEARANCE IN PREDICTING GLOMERULAR FILTRATION RATE. ESTIMATED GFR IS NOT APPLICABLE FOR DIALYSIS PATIENTS. HEPATIC FUNCTION [id number] 17:33:00 Test Item Value Reference Range Comments TOTAL PROTEIN (BEAKER) (test 8.2 gm/dL 6.0-8.3 Specimen slightly hemolyzed naea=884) ALBUMIN (BEAKER) (test 3.4 g/dL 3.5-5.0 Specimen slightly hemolyzed ufha=1752) BILIRUBIN TOTAL (BEAKER) (test 1.5 mg/dL 0.2-1.2 Specimen slightly hemolyzed yuhz=613) BILIRUBIN DIRECT (BEAKER) (test 0.7 mg/dL 0.1-0.5 Specimen slightly hemolyzed lulx=321) ALKALINE PHOSPHATASE (BEAKER) 157 U/L 40-150 (test etxm=675) AST (SGOT) (BEAKER) (test 129 U/L 5-34 Specimen slightly hemolyzed busi=712) ALT (SGPT) (BEAKER) (test 99 U/L 6-55 Specimen slightly hemolyzed dqzx=870) PROTHROMBIN [id number] 17:11:00 Test Item Value Reference Range Comments PROTIME (BEAKER) (test iqiw=927) 14.1 seconds 11.7-14.7 INR (BEAKER) (test qflj=028) 1.1 <=5.9 RECOMMENDED COUMADIN/WARFARIN INR THERAPY RANGESSTANDARD DOSE: 2.0 - 3.0 Includes: PROPHYLAXIS forvenous thrombosis, systemic embolization; TREATMENT for venous thrombosis and/or pulmonary embolus.HIGH RISK: Target INR is 2.5-3.5 for patients with mechanical heart valves.CBC W/PLT COUNT & AUTO [id number] 17:10:00 Test Item Value Reference Range Comments WHITE BLOOD CELL COUNT (BEAKER) (test mtqv=689) 6.9 K/ L 3.5-10.5 RED BLOOD CELL COUNT (BEAKER) (test tklb=262) 4.19 M/ L 3.93-5.22 HEMOGLOBIN (BEAKER) (test uflz=042) 14.8 GM/DL 11.2-15.7 HEMATOCRIT (BEAKER) (test tkoy=993) 44.8 % 34.1-44.9 MEAN CORPUSCULAR VOLUME (BEAKER) (test aviq=667) 106.9 fL 79.4-94.8 MEAN CORPUSCULAR HEMOGLOBIN (BEAKER) (test 35.3 pg 25.6-32.2 gbmp=639) MEAN CORPUSCULAR HEMOGLOBIN CONC (BEAKER) (test 33.0 GM/DL 32.2-35.5 nemw=026) RED CELL DISTRIBUTION WIDTH (BEAKER) (test 12.5 % 11.7-14.4 wvfy=330) PLATELET COUNT (BEAKER) (test igvo=005) 76 K/CU MM 150-450 MEAN PLATELET VOLUME (BEAKER) (test giku=644) 11.6 fL 9.4-12.3 NUCLEATED RED BLOOD CELLS (BEAKER) (test 0 /100 WBC 0-0 mabf=666) NEUTROPHILS RELATIVE PERCENT (BEAKER) (test 39 % gqeo=182) LYMPHOCYTES RELATIVE PERCENT (BEAKER) (test 44 % ghqg=567) MONOCYTES RELATIVE PERCENT (BEAKER) (test 11 % kqsc=835) EOSINOPHILS RELATIVE PERCENT (BEAKER) (test 5 % phuv=543) BASOPHILS RELATIVE PERCENT (BEAKER) (test 1 % yebu=710) NEUTROPHILS ABSOLUTE COUNT (BEAKER) (test 2.71 K/ L 1.56-6.13 lvjf=221) LYMPHOCYTES ABSOLUTE COUNT (BEAKER) (test 3.07 K/ L 1.18-3.74 ovqm=994) MONOCYTES ABSOLUTE COUNT (BEAKER) (test zvjj=431) 0.74 K/ L 0.24-0.36 EOSINOPHILS ABSOLUTE COUNT (BEAKER) (test 0.32 K/ L 0.04-0.36 vatb=193) BASOPHILS ABSOLUTE COUNT (BEAKER) (test lppz=557) 0.06 K/ L 0.01-0.08 IMMATURE GRANULOCYTES-RELATIVE PERCENT (BEAKER) 0 % 0-1 (test dzou=3503) LIVER FIBROSIS, FIBROTEST-ACTITEST [id number] 12:13:00 Test Item Value Reference Range Comments FIBROSIS SCORE (QUEST) (test mphd=3198214) FIBROSIS STAGE (QUEST) (test fpal=9490861) FIBROSIS INTERPRETATION (QUEST) (test tzvi=8341939) NECROINFLAMMAT ACTIVITY GRADE ([facility]) (test dvmz=3414080) NECROINFLAMMAT INTERP (QUEST) (test vbpy=6785198) BILIRUBIN, TOTAL (QUEST) (test qtsi=0937813) GGT (QUEST) (test pecp=9173543) ALT (SGPT) (QUEST) (test vvui=2436081) ALPHA 2 MACROGLOBULIN (QUEST) (test zgfw=1197721) HAPTOGLOBIN (QUEST) (test efge=5321521) APOLIPOPROTEIN A-1 (QUEST) (test nrba=3625433) NECROINFLAMMAT ACTIVITY SCORE (test xvlh=1692141) HEPATITIS C PCR, [id number] 07:21:00 Test Item Value Reference Range Comments HCV NUMERIC RESULT (BEAKER) (test lgyd=0742) [id number] IU/mL <15 This test uses a Real-Time Polymerase Chain Reaction (RT-PCR) methodology and was performed using SURI Ampliprep/SURI TaqMan HCV test kit version 2.0 ( [employer]).Reportable range for this assay is 15 - 100,000, 000 IU per mL (1.18 - 8.00 Log IU/mL).ANTI-NUCLEAR ANTIBODY (KELSIE)2018-02-12 04: 12:00 Test Item Value Reference Range Comments ANTI-NUCLEAR ANTIBODY (KELSIE) (BEAKER) (test Negative Negative dhct=676) Test performed by IFA method.Test performed by IFA method.[id number] 16: 00:00 Test Item Value Reference Range Comments FERRITIN (BEAKER) (test hmax=624) 554 ng/mL 5-275 [id number] 15:39:00 Test Item Value Reference Range Comments THYROID STIMULATING HORMONE (BEAKER) (test 2.44 uIU/mL 0.35-4.94 ueto=784) HEPATITIS C [id number] 15:23:00 Test Item Value Reference Range Comments HEPATITIS C ANTIBODY (BEAKER) (test slig=774) Reactive Nonreactive HEPATITIS B SURFACE [id number] 15:19:00 Test Item Value Reference Range Comments HEPATITIS B SURFACE ANTIBODY (BEAKER) (test < mIU/mL <8.0 dpne=129) HEPATITIS A ANTIBODY, [id number] 15:19:00 Test Item Value Reference Range Comments HEPATITIS A IGG ANTIBODY (BEAKER) (test ilbz=1683) Reactive Nonreactive HEPATITIS B SURFACE [id number] 15:17:00 Test Item Value Reference Range Comments HEPATITIS B SURFACE ANTIGEN (2) (BEAKER) (test Nonreactive Nonreactive krso=9039) HIV-1 ANTIGEN WITH HIV-1/2 [id number] 15:17:00 Test Item Value Reference Range Comments HIV-1 ANTIGEN WITH HIV 1\T\2 ANTIBODY (2) Nonreactive Nonreactive (BEAKER) (test lena=4963) ALPHA FETOPROTEIN (AFP), TUMOR [id number] 15:12:00 Test Item Value Reference Range Comments ALPHA-FETOPROTEIN (BEAKER) (test himw=9618) 124.0 ng/mL <10.0 HEPATITIS A ANTIBODY, [id number] 15:12:00 Test Item Value Reference Range Comments HEPATITIS A IGM ANTIBODY (BEAKER) (test Nonreactive Nonreactive bdze=544) HEPATITIS B CORE ANTIBODY, [id number] 15:12:00 Test Item Value Reference Range Comments HEPATITIS B CORE TOTAL ANTIBODY (BEAKER) (test Nonreactive Nonreactive xbjx=754) [id number] 14:53:00 Test Item Value Reference Range Comments ALPHA-1 ANTITRYPSIN (BEAKER) (test qgwv=395) 178.80 mg/dL 90.00-200.00 COMPREHENSIVE METABOLIC [id number] 14:52:00 Test Item Value Reference Range Comments TOTAL PROTEIN (BEAKER) 9.0 gm/dL 6.0-8.3 (test crce=549) ALBUMIN (BEAKER) (test 3.6 g/dL 3.5-5.0 dbxe=9196) ALKALINE PHOSPHATASE 141 U/L 40-150 (BEAKER) (test lrnt=803) BILIRUBIN TOTAL (BEAKER) 1.7 mg/dL 0.2-1.2 (test mtmm=799) SODIUM (BEAKER) (test 139 meq/L 136-145 virf=880) POTASSIUM (BEAKER) (test 4.0 meq/L 3.5-5.1 gjnm=262) CHLORIDE (BEAKER) (test 106 meq/L 98-107 icqt=016) CO2 (BEAKER) (test 27 meq/L 22-29 yiam=884) BLOOD UREA NITROGEN 11 mg/dL 7-21 (BEAKER) (test xsjy=967) CREATININE (BEAKER) (test 0.69 mg/dL 0.57-1.25 yaoe=989) GLUCOSE RANDOM (BEAKER) 85 mg/dL 70-105 (test xwjj=318) CALCIUM (BEAKER) (test 9.6 mg/dL 8.4-10.2 bcjz=620) AST (SGOT) (BEAKER) (test 175 U/L 5-34 jzkx=860) ALT (SGPT) (BEAKER) (test 125 U/L 6-55 bikl=106) EGFR (BEAKER) (test 85 mL/min/1.73 sq m ESTIMATED GFR IS NOT jzeb=2857) ACCURATE CREATININE CLEARANCE IN PREDICTING GLOMERULAR FILTRATION RATE. ESTIMATED GFR IS NOT APPLICABLE FOR DIALYSIS PATIENTS. BILIRUBIN, [id number] 14:52:00 Test Item Value Reference Range Comments BILIRUBIN DIRECT (BEAKER) (test tinq=968) 0.8 mg/dL 0.1-0.5 IRON, TIBC, % SAT. (WITHOUT FERRITIN)[id number] 14:51:00 Test Item Value Reference Range Comments IRON (BEAKER) (test wele=484) 218 ug/dL 40-160 TOTAL IRON BINDING CAPACITY (BEAKER) (test 343 ug/dL 250-450 nnbr=790) IRON % SATURATION (2) (BEAKER) (test ekrz=2312) 64 % 20-55 PROTHROMBIN [id number] 14:31:00 Test Item Value Reference Range Comments PROTIME (BEAKER) (test gqct=282) 15.4 seconds 11.7-14.7 INR (BEAKER) (test alrf=976) 1.2 <=5.9 RECOMMENDED COUMADIN/WARFARIN INR THERAPY RANGESSTANDARD DOSE: 2.0 - 3.0 Includes: PROPHYLAXIS forvenous thrombosis, systemic embolization; TREATMENT for venous thrombosis and/or pulmonary embolus.HIGH RISK: Target INR is 2.5-3.5 for patients with mechanical heart valves.CBC W/PLT COUNT & AUTO [id number] 14:29:00 Test Item Value Reference Range Comments WHITE BLOOD CELL COUNT (BEAKER) (test btrc=965) 5.0 K/ L 3.5-10.5 RED BLOOD CELL COUNT (BEAKER) (test vqgr=130) 4.35 M/ L 3.93-5.22 HEMOGLOBIN (BEAKER) (test sakt=387) 15.1 GM/DL 11.2-15.7 HEMATOCRIT (BEAKER) (test dteb=525) 45.1 % 34.1-44.9 MEAN CORPUSCULAR VOLUME (BEAKER) (test dbrb=236) 103.7 fL 79.4-94.8 MEAN CORPUSCULAR HEMOGLOBIN (BEAKER) (test 34.7 pg 25.6-32.2 ybof=582) MEAN CORPUSCULAR HEMOGLOBIN CONC (BEAKER) (test 33.5 GM/DL 32.2-35.5 xmxr=806) RED CELL DISTRIBUTION WIDTH (BEAKER) (test 12.1 % 11.7-14.4 qkvd=732) PLATELET COUNT (BEAKER) (test exnt=527) 83 K/CU MM 150-450 MEAN PLATELET VOLUME (BEAKER) (test dqno=113) 11.5 fL 9.4-12.3 NUCLEATED RED BLOOD CELLS (BEAKER) (test 0 /100 WBC 0-0 mnef=139) NEUTROPHILS RELATIVE PERCENT (BEAKER) (test 30 % ptrz=440) LYMPHOCYTES RELATIVE PERCENT (BEAKER) (test 47 % fybn=906) MONOCYTES RELATIVE PERCENT (BEAKER) (test 13 % wgqy=371) EOSINOPHILS RELATIVE PERCENT (BEAKER) (test 8 % gyem=375) BASOPHILS RELATIVE PERCENT (BEAKER) (test 1 % nvoh=296) NEUTROPHILS ABSOLUTE COUNT (BEAKER) (test 1.47 K/ L 1.56-6.13 fdik=790) LYMPHOCYTES ABSOLUTE COUNT (BEAKER) (test 2.36 K/ L 1.18-3.74 cmpi=191) MONOCYTES ABSOLUTE COUNT (BEAKER) (test bppu=390) 0.66 K/ L 0.24-0.36 EOSINOPHILS ABSOLUTE COUNT (BEAKER) (test 0.41 K/ L 0.04-0.36 vslg=604) BASOPHILS ABSOLUTE COUNT (BEAKER) (test mqow=606) 0.07 K/ L 0.01-0.08 IMMATURE GRANULOCYTES-RELATIVE PERCENT (BEAKER) 0 % 0-1 (test vdic=5135)
[2018-05-29 10:32] LABS: Absolute Lymphocytes (CBC) 3.3 K/uL (0.7-4.9); Absolute Monocytes 0.7 K/uL (0.1-1.3); Absolute Neutrophil 3.1 K/uL (1.8-8.0); Basophils % 1.2 % (0-1.3); Eosinophils % 0.3 % (0-4.4); Hematocrit 35.5 % (36.0-45.0); Lymphocytes % 46.1 % (15.3-44.8); MPV 8.9 fL (7.6-11.3); Monocytes % 9.1 % (3.3-12.3); RBC Red Blood Cell Count 3.46 M/uL (3.86-4.86)
[2018-05-29 10:37] LABS: Protime INR 1.27
--- NOTE | 2018-05-29 10:43 | RAD REPORT ---
EXAM DESCRIPTION: RAD - Chest Single View - 05/29/2018 10:13 am CLINICAL HISTORY: Chest pain COMPARISON: September 2016 TECHNIQUE: AP portable chest image was obtained 1010 hours . FINDINGS: No mass, consolidation or failure finding. Mild prominence of the interstitial markings si milar to comparison. Heart and vasculature are normal. No measurable pleural effusion and no pneumoth orax. No acute bony abnormality seen. No acute aortic findings suspected. IMPRESSION: No acute cardiopulmonary process. Patient has mild chronic interstitial lung disease similar to comparison.
[2018-05-29 10:49] LABS: Albumin 3.4 g/dL (3.4-5.0); Bilirubin Direct 0.5 mg/dL (0-0.2); Magnesium 1.8 mg/dL (1.8-2.4); Potassium 3.9 mmol/L (3.5-5.1); Protein, Total 7.9 g/dL (6.4-8.2); Troponin (Emerg Dept Use Only) 0.04 ng/mL (0.0-0.045)
[2018-05-29 11:14] LABS: Blood Morphology Comment NOT SEEN (NOT SEEN); Platelet Estimate ADEQ
--- NOTE | 2018-05-29 11:37 | ER ---
Nurse's Notes [facility] Name: Chiara Reyes Age: 67 yrs Sex: Female : 1950 Arrival Date: 05/29/2018 Time: 09:44 Bed 8 Private MD: Sebastian Cormier B Diagnosis: Gastrointestinal hemorrhage, unspecified Presentation: 05/29 09:55 Presenting complaint: Vomiting dark blood x 6 since last night, palpitations lasting hb approx 1 minute last night, SOB on exertion and low back pain 4/10 today. Transition of care: patient was not received from another setting of care. Onset of symptoms was May 28, 2018. Risk Assessment: Do you want to hurt yourself or someone else? Patient reports no desire to harm self or others. Initial Sepsis Screen: Does the patient meet any 2 criteria? No. Patient's initial sepsis screen is negative. Does the patient have a suspected source of infection? No. Patient's initial sepsis screen is negative. Care prior to arrival: None. 09:55 Method Of Arrival: Ambulatory hb 09:55 Acuity: MARY ELLEN 3 hb Historical: - Allergies: 09:57 Aspirin; hb - Home Meds: 09:57 eye drops for glaucoma [Active]; Multiple Vitamins Oral [Active]; hb - PMHx: 09:57 Glaucoma; Hepatitis; hb - PSHx: 09:57 Hysterectomy; right shoulder; Carpal Tunnel Repair; Breast biopsy; hb - Immunization history:: Adult Immunizations up to date. - Social history:: Smoking status: Patient/guardian denies using tobacco. - Ebola Screening: : No symptoms or risks identified at this time. Screenin:03 Abuse screen: Denies threats or abuse. Denies injuries from another. Nutritional aj1 screening: No deficits noted. Tuberculosis screening: No symptoms or risk factors identified. 13:55 Fall Risk No fall in past 12 months (0 pts). Secondary diagnosis (15 points) aj1 orthostatic positive vital signs. IV access (20 points). Ambulatory Aid- None/Bed Rest/Nurse Assist (0 pts). Gait- Weak (10 pts.). Mental Status- Oriented to own ability (0 pts). Total Riggs Fall Scale indicates High Risk Score (45 or more points). As available patient and family educated on Fall Prevention Program and Strategies. Assessment: 10:03 General: Appears in no apparent distress. comfortable, Behavior is calm, cooperative, aj1 appropriate for age. Pain: Complains of pain in low back area Pain currently is 4 out of 10 on a pain scale. Neuro: Level of Consciousness is awake, alert, obeys commands, Oriented to person, place, time, situation, Moves all extremities. Full function Gait is steady, Speech is normal, Facial symmetry appears normal, Reports dizziness, upon changing positions. Cardiovascular: Reports palpitations, shortness of breath, Patient's skin is warm and dry. Respiratory: Reports shortness of breath on exertion Airway is patent Respiratory effort is even, unlabored, Respiratory pattern is regular, symmetrical, Breath sounds are clear bilaterally. GI: Abdomen is non-distended, Abd is soft and non tender X 4 quads. Reports nausea, dark red vomit x2. : No signs and/or symptoms were reported regarding the genitourinary system. EENT: No signs and/or symptoms were reported regarding the EENT system. Derm: No signs and/or symptoms reported regarding the dermatologic system. Skin is pink, warm \T\ dry. normal. Musculoskeletal: No signs and/or symptoms reported regarding the musculoskeletal system. Circulation, motion, and sensation intact. 11:12 Reassessment: Patient appears in no apparent distress at this time. No changes from aj1 previously documented assessment. Patient and/or family updated on plan of care and expected duration. Pain level reassessed. Patient is alert, oriented x 3, equal unlabored respirations, skin warm/dry/pink. 12:24 Reassessment: Patient appears in no apparent distress at this time. No changes from aj1 previously documented assessment. Patient and/or family updated on plan of care and expected duration. Pain level reassessed. Patient is alert, oriented x 3, equal unlabored respirations, skin warm/dry/pink. 13:45 Reassessment: Patient appears in no apparent distress at this time. No changes from aj1 previously documented assessment. Patient and/or family updated on plan of care and expected duration. Pain level reassessed. Patient is alert, oriented x 3, equal unlabored respirations, skin warm/dry/pink. 14:39 Reassessment: Patient appears in no apparent distress at this time. No changes from aj1 previously documented assessment. Patient and/or family updated on plan of care and expected duration. Pain level reassessed. Patient is alert, oriented x 3, equal unlabored respirations, skin warm/dry/pink. Vital Signs: 09:57 BP 144 / 79; Pulse 101; Resp 16; Temp 97.4; Pulse Ox 99% on R/A; Pain 4/10; hb 11:12 BP 113 / 65; Pulse 97; Resp 18; Pulse Ox 98% on R/A; aj1 11:25 BP 109 / 63 Supine; Pulse 92; aj1 11:28 BP 112 / 81 Sitting; Pulse 104; aj1 11:31 BP 95 / 64 Standing; Pulse 121; aj1 12:24 BP 110 / 64; Pulse 84; Resp 18; Pulse Ox 97% on R/A; aj1 13:45 BP 115 / 75; Pulse 92; Resp 18; Pulse Ox 99% on R/A; aj1 ED Course: 09:44 Patient arrived in ED. as 09:44 Sebastian Cormier MD is Private Physician. as 09:48 [facility]C [facility]. kb 09:48 Jose Cruz Elizabeth MD is Attending Physician. kb 09:56 Leelee Pardo RN is Primary Nurse. aj1 09:57 Triage completed. hb 09:57 Arm band placed on. hb 10:03 Patient has correct armband on for positive identification. Placed in gown. Bed in low aj1 position. Call light in reach. nuclear monitoring technician on. Pulse ox on. NIBP on. 10:03 No provider procedures requiring assistance completed. aj1 10:11 X-ray completed. Portable x-ray completed in exam room. Patient tolerated procedure la2 well. 10:13 XRAY Chest (1 view) In Process Unspecified. EDMS 10:21 Initial lab(s) drawn, by me, sent to lab. EKG done, by ED staff, reviewed by Jose Cruz Elizabeth MD. Inserted saline lock: 20 gauge in right forearm, using aseptic technique. Blood collected. 11:12 Served as a lockstitch zipper setter during rectal exam. aj1 11:36 Wallace Quick DO is Hospitalizing Provider. kb 13:56 Report given to KAMI Bernal on 4th floor. aj1 13:56 Patient admitted, IV remains in place. aj1 Administered Medications: 11:40 Drug: NS 0.9% 1000 ml Route: IV; Rate: 1000 ml; Site: right forearm; aj1 13:57 Follow up: IV Status: Completed infusion; IV Intake: 1000ml aj1 Intake: 13:57 IV: 1000ml; Total: 1000ml. aj1 Outcome: 11:36 Decision to Hospitalize by Provider. kb 14:39 Admitted to Tele accompanied by tech, via wheelchair, with chart. aj1 14:39 Condition: good 14:39 Discharge instructions given to patient, Instructed on the need for admit, Demonstrated understanding of instructions. 14:39 Patient left the ED. aj1 Signatures: Dispatcher [employer] EDAna Ramon, TELLER-C TELLER-Ckb Leelee Pardo, RN RN aj1 Chauncey, Shashank Mc1 Emmanuelle Churchill RN RN Evonne Ridley
--- NOTE | 2018-05-29 11:37 | EDPHYS ---
Physician Documentation [facility] Name: Chiara Reyes Age: 67 yrs Sex: Female : 1950 Arrival Date: 05/29/2018 Time: 09:44 Bed 8 Private MD: Sebastian Cormier B ED Physician Jose Cruz Elizabeth HPI: 05/29 10:45 This 67 yrs old Female presents to ER via Ambulatory with complaints of kb Vomiting Blood. 10:45 The patient presents to the emergency department vomiting blood, a moderate amount, kb dark brown, 2 times since symptom onset. Onset: The symptoms/episode began/occurred this morning. Abdominal pain: none is appreciated. Modifying factors: The symptoms are alleviated by nothing, the symptoms are aggravated by nothing. Associated signs and symptoms: Pertinent positives: vomiting. Severity of symptoms: At their worst the symptoms were moderate in the emergency department the symptoms have improved. The patient has experienced similar episodes in the past, a few times. The patient has not recently seen a physician. Pt reports two episodes of hematemesis this morning at 0300 and 0600. Denies nausea or abd pain at this time. States she also had palpitations last night and shortness of breath on exertion this morning. . Historical: - Allergies: 09:57 Aspirin; hb - Home Meds: 09:57 eye drops for glaucoma [Active]; Multiple Vitamins Oral [Active]; hb - PMHx: 09:57 Glaucoma; Hepatitis; hb - PSHx: 09:57 Hysterectomy; right shoulder; Carpal Tunnel Repair; Breast biopsy; hb - Immunization history:: Adult Immunizations up to date. - Social history:: Smoking status: Patient/guardian denies using tobacco. - Ebola Screening: : No symptoms or risks identified at this time. ROS: 10:44 Constitutional: Negative for fever, chills, and weight loss, Back: Negative for injury kb and pain, : Negative for injury, bleeding, discharge, and swelling, MS/Extremity: Negative for injury and deformity, Skin: Negative for injury, rash, and discoloration, Neuro: Negative for headache, weakness, numbness, tingling, and seizure. 10:44 Abdomen/GI: Positive for nausea and vomiting, hematemesis, black/tarry stool. 10:48 Cardiovascular: Positive for palpitations. kb 10:48 Respiratory: Positive for dyspnea on exertion. Exam: 10:44 Constitutional: This is a well developed, well nourished patient who is awake, alert, kb and in no acute distress. Head/Face: Normocephalic, atraumatic. Chest/axilla: Normal chest wall appearance and motion. Nontender with no deformity. No lesions are appreciated. Cardiovascular: Regular rate and rhythm with a normal S1 and S2. No gallops, murmurs, or rubs. Normal PMI, no JVD. No pulse deficits. Respiratory: Lungs have equal breath sounds bilaterally, clear to auscultation and percussion. No rales, rhonchi or wheezes noted. No increased work of breathing, no retractions or nasal flaring. Abdomen/GI: Soft, non-tender, with normal bowel sounds. No distension or tympany. No guarding or rebound. No evidence of tenderness throughout. Skin: Warm, dry with normal turgor. Normal color with no rashes, no lesions, and no evidence of cellulitis. MS/ Extremity: Pulses equal, no cyanosis. Neurovascular intact. Full, normal range of motion. Neuro: Awake and alert, GCS 15, oriented to person, place, time, and situation. Cranial nerves II-XII grossly intact. Motor strength 5/5 in all extremities. Sensory grossly intact. Cerebellar exam normal. Normal gait. 11:10 Abdomen/GI: Inspection: abdomen appears normal, Bowel sounds: normal, in all quadrants, kb Palpation: abdomen is soft and non-tender, in all quadrants, Rectal exam: rectal tone normal, Stool: guaiac positive, black, tenderness, is not appreciated, the exam is chaperoned by an mechanical sound technician. Vital Signs: 09:57 BP 144 / 79; Pulse 101; Resp 16; Temp 97.4; Pulse Ox 99% on R/A; Pain 4/10; hb 11:12 BP 113 / 65; Pulse 97; Resp 18; Pulse Ox 98% on R/A; aj1 11:25 BP 109 / 63 Supine; Pulse 92; aj1 11:28 BP 112 / 81 Sitting; Pulse 104; aj1 11:31 BP 95 / 64 Standing; Pulse 121; aj1 12:24 BP 110 / 64; Pulse 84; Resp 18; Pulse Ox 97% on R/A; aj1 13:45 BP 115 / 75; Pulse 92; Resp 18; Pulse Ox 99% on R/A; aj1 MDM: 09:50 Patient medically screened. kb 10:43 Data reviewed: vital signs, nurses notes. Data interpreted: Pulse oximetry: on room air kb is 99 %. Interpretation: normal. 11:35 Counseling: I had a detailed discussion with the patient and/or guardian regarding: the kb historical points, exam findings, and any diagnostic results supporting the discharge/admit diagnosis, lab results, the need for further work-up and treatment in the hospital. Physician consultation: Wallace Velazquezbogdan SANCHEZ was contacted at 11:35, regarding admission, to the telemetry unit. patient's condition, in the emergency department to see patient at 11:35. 05/29 10:01 Order name: Basic Metabolic Panel; Complete Time: 10:49 kb 05/29 10:01 Order name: CBC with Diff; Complete Time: 11:20 kb 05/29 10:01 Order name: LFT's; Complete Time: 10:49 kb 05/29 10:01 Order name: Magnesium; Complete Time: 10:49 kb 05/29 10:01 Order name: NT PRO-BNP; Complete Time: 10:49 kb 05/29 10:01 Order name: PT-INR; Complete Time: 10:44 kb 05/29 10:01 Order name: Troponin (emerg Dept Use Only); Complete Time: 10:49 kb 05/29 10:01 Order name: XRAY Chest (1 view); Complete Time: 10:48 kb 05/29 10:01 Order name: EKG; Complete Time: 10:02 kb 05/29 10:01 Order name: Cardiac monitoring; Complete Time: 10:14 kb 05/29 10:01 Order name: EKG - Nurse/Tech; Complete Time: 10:14 kb 05/29 11:12 Order name: Guiac; Complete Time: 12:20 kb 05/29 11:14 Order name: Manual Differential; Complete Time: 11:20 EDMS 05/29 10:01 Order name: IV Saline Lock; Complete Time: 10:18 kb 05/29 10:01 Order name: Labs collected and sent; Complete Time: 10:18 kb 05/29 10:01 Order name: O2 Per Protocol; Complete Time: 10:14 kb 05/29 10:01 Order name: O2 Sat Monitoring; Complete Time: 10:14 kb 05/29 11:12 Order name: Orthostatics; Complete Time: 11:34 kb Administered Medications: 11:40 Drug: NS 0.9% 1000 ml Route: IV; Rate: 1000 ml; Site: right forearm; aj1 13:57 Follow up: IV Status: Completed infusion; IV Intake: 1000ml aj1 Disposition: 15:15 Co-signature as Attending Physician, Jose Cruz Elizabeth MD. rn Disposition: 05/29/18 11:36 Hospitalization ordered by Wallace Quick for Inpatient Admission. Preliminary diagnosis is Gastrointestinal hemorrhage, unspecified. - Bed requested for Telemetry/MedSurg (Inpatient). - Status is Inpatient Admission. aj1 - Condition is Stable. - Problem is new. - Symptoms are unchanged. UTI on Admission? No Signatures: Dispatcher [employer] EDMS Ana Mao, CUTTER GRINDER-C CUTTER GRINDER-Ckb Leelee Pardo RN RN aj1 Jose Cruz Elizabeth MD MD rn Baxter, Heather, RN RN hb Fitzgerald, Diane, RN RN df Botello, Elizabeth eb Corrections: (The following items were deleted from the chart) 10:48 10:44 Constitutional: Negative for fever, chills, and weight loss, Cardiovascular: kb Negative for chest pain, palpitations, and edema, Respiratory: Negative for shortness of breath, cough, wheezing, and pleuritic chest pain, Back: Negative for injury and pain, : Negative for injury, bleeding, discharge, and swelling, MS/Extremity: Negative for injury and deformity, Skin: Negative for injury, rash, and discoloration, Neuro: Negative for headache, weakness, numbness, tingling, and seizure, kb 12:07 11:36 Hospitalization Ordered by Wallace Quick DO for Inpatient Admission. Preliminary eb diagnosis is Gastrointestinal hemorrhage, unspecified. Bed requested for Telemetry/MedSurg (Inpatient). Status is Inpatient Admission. Condition is Stable. Problem is new. Symptoms are unchanged. UTI on Admission? No. kb 13:23 12:07 05/29/2018 11:36 Hospitalization Ordered by Wallace Quick DO for Inpatient df Admission. Preliminary diagnosis is Gastrointestinal hemorrhage, unspecified. Bed requested for Telemetry/MedSurg (Inpatient). Status is Inpatient Admission. Condition is Stable. Problem is new. Symptoms are unchanged. UTI on Admission? No. eb 14:39 13:23 05/29/2018 11:36 Hospitalization Ordered by Wallace Quick DO for Inpatient aj1 Admission. Preliminary diagnosis is Gastrointestinal hemorrhage, unspecified. Bed requested for Telemetry/MedSurg (Inpatient). Status is Inpatient Admission. Condition is Stable. Problem is new. Symptoms are unchanged. UTI on Admission? No. df
[2018-05-29] MEDS ORDERED: NA CHLORIDE 0.9% 1,000 ML ONE (11:47)
--- NOTE | 2018-05-29 14:05 | P.HP ---
Certification for Inpatient Patient admitted to: Observation With expected LOS: <2 Midnights Patient will require the following post-hospital care: None Practitioner: I am a practitioner with admitting privileges, knowledge of patient current condition, hospital course, and medical plan of care. Services: Services provided to patient in accordance with Admission requirements found in Title 42 Section 412.3 of the Code of Federal Regulations Patient History Date of Service: 05/29/18 Primary Care Provider: Dr. Cormier; GI-Dr. Zepeda Reason for admission: Hematemesis History of Present Illness: 67-year-old female presented to the emergency room with hematemesis. Patient with history of hepatitis-C and liver cirrhosis. Patient still drinks alcohol. Patient with prior history of gastric ulcer, erosive gastritis, small hiatal hernia and esophagitis. Patient reports hematemesis early today. Patient reports she started having nausea around 3:00 a.m. then again at 6:00 a.m.. Both times with hematemesis. She also reported some melena today. Patient reported some short of breath. Patient reports having a EGD done in 2017. She had a gastric ulcer noted at that time. Since that time she is being treated for hepatitis-C. She recently finished her regimen of treatment. She was told to stop her Protonix during this time. In the ER patient evaluated. Vital signs stable. Hemoglobin 12.3. White count 7.2. Patient given hit anti nausea medication. Guaiac stool was positive. Patient was admitted for further evaluation. When I saw the patient ER, she appeared stable. She was without any significant nausea. Family at bedside. Patient admits still drinking about 2- 3 glasses of wine per day. Allergies aspirin Allergy (Severe, Verified 01/30/13 18:08) Hives Home medications list reviewed: Yes Home Medications: Multivit,Ther Iron,Ca,FA & Min [Centrum Tablet*] 1 tab PO DAILY 09/17/16 Timolol 0.5% Opth [Timoptic 0.5% Opth*] 1 drop EACH EYE DAILY 09/17/16 Pantoprazole [Protonix Tab] 40 mg PO BID #60 tab 09/18/16 - Past Medical/Surgical History Diabetic: No -: Hepatitis-C, treated -: Alcoholic liver cirrhosis -: History gastric ulcer/esophagitis/gastritis -: Hiatal hernia -: Alcohol abuse -: Former Tobacco abuse -: Hysterectomy -: Benign breast biopsy -: Carpal Tunnel Surgery, Bilateral -: Right shoulder rotator cuff surgery Psychosocial/ Personal History: 2 years ago from Liver cirrhosis/ Hepatitis C;. She was for 35 years, Children-2 both at and near . 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 - Family History Father -: Liver disease (Liver cirrhosis due to alcohol) Mother -: Cancer (Breast cancer) - Social History Smoking Status: Former smoker Alcohol use: Yes (1-3 Beer or a glass of wine per night. ) CD- Drugs: No Caffeine use: Yes (3 cups of coffee every am and tea every now and then. ) Place of Residence: Home Review of Systems General: As per HPI Eyes: Unremarkable ENT: Unremarkable Respiratory: Shortness of Breath, As per HPI Cardiovascular: Unremarkable Gastrointestinal: Nausea, Vomiting, Melena, As per HPI Genitourinary: Unremarkable Musculoskeletal: Unremarkable Integumentary: Unremarkable Neurological: Unremarkable Lymphatics: Unremarkable Physical Examination - Physical Exam General: Alert, In no apparent distress, Oriented x3, Cooperative HEENT: Atraumatic, Normocephalic, PERRLA, Mucous membr. moist/pink Neck: Supple, No Thyromegaly Respiratory: Clear to auscultation bilaterally, Normal air movement Cardiovascular: Normal pulses, Regular rate/rhythm Gastrointestinal: Normal bowel sounds, Soft and benign, Non-distended, No ascites, No tenderness, No masses, No rebound, No guarding Musculoskeletal: No contractures, No erythema, No tenderness, No warmth Integumentary: No tenderness/swelling, No erythema, No warmth, No cyanosis Neurological: Normal speech, Normal strength at 5/5 x4 extr, Normal tone, Normal affect Lymphatics: No axilla or inguinal lymphadenopathy - Studies Laboratory Data (last 24 hrs) 05/29/18 10:15: PT 15.0 H, INR 1.27 05/29/18 10:15: WBC 7.2, Hgb 12.3, Hct 35.5 L, Plt Count 103 L 05/29/18 10:15: Sodium 139, Potassium 3.9, BUN 35 H, Creatinine 0.86, Glucose 112 H, Magnesium 1.8, Total Bilirubin 2.0 H, AST 35, ALT 29, Alkaline Phosphatase 93 Microbiology Data (last 24 hrs): 05/29/18 11:12 Stool Occult Blood - Final Assessment and Plan - Plan Impression: Upper GI bleed with history of gastritis/gastric ulcer/esophagitis Alcoholic liver cirrhosis complicated with alcohol abuse Hepatitis-C, recently finished treatment Former tobacco use Plan: Upper GI bleed with history of gastritis/gastric ulcer/esophagitis: The patient will be admitted. Will monitor closely. Will recheck serial hemoglobin and hematocrit. Will start IV Protonix drip. Will start IV antibiotic as well. If hemoglobin starts to drop patient may require blood transfusion. If this continues to worsen patient may require a EGD. I was able to get in contact with her GI specialist-Dr. Zepeda. He is out of town. He asked to have the supervisor fabrication and assembly GI physician take care of until Thursday. Therefore I have consulted GI supervisor fabrication and assembly who will see the patient later. If significantly improved will consider with trial of clear liquid diet. Continue IV fluids. Alcoholic liver cirrhosis complicated with alcohol abuse: Patient seen by hepatology. Alcohol cessation addressed in detail. Patient still drinks about 2-3 wine glasses a day. Patient understands that she needs to quit entirely. Hepatitis-C, recently finished treatment: Patient recently finish treatment. During this time she had to stop her Protonix. Former tobacco use: The patient is not been smoking in quite some time. Continue cessation. Discharge Plan: Home Plan to discharge in: 48 Hours - Advance Directives Does patient have a Living Will: No Does patient have a Durable POA for Healthcare: No - Code Status/Comfort Care Code Status Assessed: Yes (Patient full code.) Time Spent Managing Pts Care (In Minutes): 55
[2018-05-29 14:55] VITALS: BMI 26.6
[2018-05-29] MEDS ORDERED: ONDANSETRON 4 MG/2 ML VIAL IV PRN (14:58)
[2018-05-29] MEDS ORDERED: MORPHINE 4 MG/ML SYR IV PRN (14:58)
[2018-05-29] MEDS ORDERED: ACETAMINOPHEN 500 MG TAB PO PRN (14:58)
[2018-05-29] MEDS ORDERED: INFLUENZA VACCINE (for 3y+) 0.5 ML DOSE IMVAC ONE (16:00)
[2018-05-29 16:10] LABS: Hematocrit 31.3 % (36.0-45.0)
[2018-05-29] MEDS: CEFTRIAXONE/SWI 1gm 1 GM/10 ML SYR IV SCH (16:41)
[2018-05-29] MEDS: NA CHLORIDE 0.9% 1,000 ML IV SCH (16:41)
[2018-05-29] MEDS: PANTOPRAZOLE INJ 80 MG in NA CHLORIDE 0.9% 250 ML IV SCH (17:08)
[2018-05-29] MEDS ORDERED: MAGNESIUM SULFATE 1 gm IVPB 1 GM/100 ML BAG IV ONE (20:42)
[2018-05-29] MEDS ORDERED: POTASSIUM CL SA 10 MEQ TAB PO ONE (20:45)
[2018-05-29] MEDS ORDERED: KCL 20 MEQ/100 mL IVPB 20 MEQ/100 ML BAG IV SCH (21:00)
[2018-05-29 21:58] LABS: Urine Appearance CLEAR; Urine Bilirubin NEGATIVE (NEG); Urine Blood TRACE (NEG); Urine Color YELLOW; Urine Glucose NEGATIVE (NEG); Urine Protein NEGATIVE (NEG); Urine Specific Gravity 1.025 (1.005-1.030); Urine pH 6.5 (5.0-7.0)
[2018-05-29 22:23] LABS: Urine Microscopic Reflex ORDER UMIC
[2018-05-29 22:35] LABS: Urine Bacteria <20 /HPF (<20); Urine Culture Reflex Order REFLEXED; Urine RBC <5 /HPF (NONE SEEN)
[2018-05-30] MEDS: NA CHLORIDE 0.9% 1,000 ML IV SCH (01:07)
[2018-05-30] MEDS: PANTOPRAZOLE INJ 80 MG in NA CHLORIDE 0.9% 250 ML IV SCH ×2 (01:10→12:00)
[2018-05-30 05:38] LABS: Absolute Lymphocytes (CBC) 3.7 K/uL (0.7-4.9); Absolute Monocytes 0.6 K/uL (0.1-1.3); Absolute Neutrophil 1.5 K/uL (1.8-8.0); Basophils % 0.9 % (0-1.3); Eosinophils % 3.4 % (0-4.4); Hematocrit 25.6 % (36.0-45.0); Lymphocytes % 60.9 % (15.3-44.8); MPV 8.8 fL (7.6-11.3); Monocytes % 9.7 % (3.3-12.3); RBC Red Blood Cell Count 2.46 M/uL (3.86-4.86)
[2018-05-30 06:00] LABS: Albumin 2.6 g/dL (3.4-5.0); Bilirubin Total 1.1 mg/dL (0.2-1.0); Magnesium 2.1 mg/dL (1.8-2.4); Potassium 3.9 mmol/L (3.5-5.1); Protein, Total 5.5 g/dL (6.4-8.2)
[2018-05-30] MEDS ORDERED: KCL 20 MEQ/100 mL IVPB 20 MEQ/100 ML BAG IV SCH (07:00)
[2018-05-30] MEDS ORDERED: NACHLORIDE 0.45% 1,000 ML IV SCH (08:00)
[2018-05-30 08:42] LABS: Blood Morphology Comment NOT SEEN (NOT SEEN); Platelet Estimate DECR
[2018-05-30] MEDS ORDERED: CEFTRIAXONE 1 GM/NS 50 ML 1 GM/50 ML BAG IV SCH (09:00)
[2018-05-30 12:57] LABS: Hematocrit 25.2 % (36.0-45.0)
--- NOTE | 2018-05-30 13:04 | P.PN ---
Subjective Date of Service: 05/30/18 Primary Care Provider: Dr. Cormier; GI-Dr. Zepeda Chief Complaint: Hematemesis Subjective: Improving (Patient feels improved. No significant hematemesis this morning.) Physical Examination - Vital Signs Temperature: 99 F Blood Pressure: 106/53 Pulse: 77 Respirations: 16 Pulse Ox (%): 98 - Physical Exam General: Alert, In no apparent distress, Oriented x3, Cooperative HEENT: Atraumatic Neck: Supple Respiratory: Clear to auscultation bilaterally, Normal air movement Cardiovascular: Normal pulses, Regular rate/rhythm Gastrointestinal: Normal bowel sounds, Soft and benign, Non-distended, No tenderness, No masses, No rebound, No guarding Musculoskeletal: No erythema, No tenderness, No warmth Integumentary: No tenderness/swelling, No erythema, No warmth, No cyanosis Neurological: Normal speech, Normal strength at 5/5 x4 extr, Normal tone, Normal affect - Studies Microbiology Data (last 24 hrs): 05/29/18 11:12 Stool Occult Blood - Final Medications List Reviewed: Yes Assessment & Plan Discharge Plan: Home Plan to discharge in: 48 Hours Physician Review Additional Text: Impression: Upper GI bleed with history of gastritis/gastric ulcer/esophagitis Alcoholic liver cirrhosis complicated with alcohol abuse Hepatitis-C, recently finished treatment Former tobacco use Plan: Upper GI bleed with history of gastritis/gastric ulcer/esophagitis: The patient has done well overnite. Continue with IV Protonix drip. Continue monitor hemoglobin and hematocrit. Patient seen by GI. GI plans for EGD today. Await findings. Patient remains NPO. Hemoglobin stable. No need for transfusion at this time. Await further recommendations from GI after EGD. I will turn the service over to Dr. Haley tomorrow. I will go over the plan of care with her. Alcoholic liver cirrhosis complicated with alcohol abuse: Patient seen by hepatology. Alcohol cessation addressed in detail. Patient still drinks about 2-3 wine glasses a day. Patient understands that she needs to quit entirely. Continue to address alcohol cessation. Hepatitis-C, recently finished treatment: Patient recently finish treatment. During this time she had to stop her Protonix. Former tobacco use: The patient is not been smoking in quite some time. Continue cessation. Time Spent Managing Pts Care (In Minutes): 55
[2018-05-30] MEDS ORDERED: Ringers Lactate 1,000 ML IV ONE (13:14)
[2018-05-30] MEDS ORDERED: PROPOFOL 200 MG/20 ML VIAL IV ONE (13:20)
--- NOTE | 2018-05-30 14:53 | ENDO RPT ---
[address], [address] EGD PROCEDURE REPORT EXAM DATE: 05/30/2018 PATIENT NAME: Chiara Reyes MR#: [id number] BIRTHDATE: 1950 ATTENDING: [address] STATUS: inpatient NET REPAIRER: Dorinda Whatley and Maddie Paul RN INDICATIONS: The patient is a 67 yr old Female here for an EGD due to hematemesis, melenic bleeding, and anemia PROCEDURE PERFORMED: EGD with biopsy MEDICATIONS: Per Anesthesia. TOPICAL ANESTHETIC: none CONSENT: The patient understands the risks and benefits of the procedure and understands that these risks include, but are not limited to: sedation, allergic reaction, infection, perforation and/or bleeding. Alternative means of evaluation and treatment include, among others: physical exam, x-rays, and/or surgical intervention. The patient elects to proceed with this endoscopic procedure. DESCRIPTION OF PROCEDURE: During intra-op preparation period all mechanical medical equipment was checked for proper function. Hand hygiene and appropriate measures for infection prevention was taken. Procedure, possible complications, and alternatives including but not limited to the possibility of bleeding, perforation, tear, infection, sepsis, need for surgery, need for blood transfusion, and anesthesia related complications were explained to the patient. After the risks, benefits and alternatives of the procedure were thoroughly explained, Informed consent was verified, confirmed and timeout was successfully executed by the treatment team. The patient was placed in the left lateral position. The patient was anesthetized with topical anesthesia. Through the anesthetized oropharyngeal area, the scope was passed without any difficulty. The Pentax EG-[id number] ([id number]) endoscope was introduced through the mouth and advanced to the third portion of the duodenum. Retroflexed views revealed a moderate sized hiatal hernia. The gastroscope was then slowly withdrawn and removed. LA Class A esophagitis was found in the lower esophagus. A moderate sized hiatal hernia was found Multiple erosions were found in the antrum. Multiple biopsies were obtained and sent to pathology. Duodenitis was found in the bulb of the duodenum. ADVERSE EVENTS: There were no complications. IMPRESSIONS: 1. LA Class A esophagitis in the lower esophagus 2. Moderate sized hiatal hernia 3. Multiple (6) erosions in the pre-pyloric antrum, s/p biopsies 4. Duodenitis in the bulb of the duodenum 5. No active bleeding nor stigmata of recent hemorrhage RECOMMENDATIONS: 1. await biopsy results 2. continue acid suppression therapy REPEAT EXAM: [address] eSigned: [address] 05/30/2018 2:23 PM cc: Wallace Quick CPT CODES: ICD9 CODES: PATIENT NAME: Chiara Reyes MR#: [id number]
[2018-05-30] MEDS ORDERED: POTASSIUM CL SA 10 MEQ TAB PO SCH (16:00)
[2018-05-30] MEDS: CEFTRIAXONE/SWI 1gm 1 GM/10 ML SYR IV SCH (16:33)
[2018-05-30] MEDS: NACHLORIDE 0.45% 1,000 ML IV SCH (16:33)
[2018-05-30 18:14] LABS: Hematocrit 25.5 % (36.0-45.0)
[2018-05-30] MEDS ORDERED: TRAVOPROST 0.004% 2.5ML OPTH EACH EYE SCH (21:00)
--- NOTE | 2018-05-30 22:35 | CON ---
Date of Consultation: 05/30/2018 Reason For Consultation: Hematemesis with melena and anemia. History Of Present Illness: The patient is a 67-year-old white female with history of hepatitis C, s tatus post recent therapy, completed therapy in the past month, alcoholic liver cirrhosis, peptic ulc er disease, esophagitis, gastritis, hiatal hernia, alcohol abuse, former tobacco abuse, hysterectomy, benign breast biopsy, carpal tunnel syndrome. The patient presented to the hospital due to hemateme sis and a sister who is with her says she also has some dark stools, but is unsure if it is quite farshad eric, says it was a dark stool. The patient's hemoglobin has drifted down from approximately 12.3 rosanna n to 8.6 overnight. She says she had 2 events of hematemesis yesterday, Thursday morning and afternoon. She takes Excedrin medication and some Tylenol. She also had an event of hematemesis 1 -1/2 years ago. EGD then performed by Dr. Bee revealed small esophageal varices, too small to band, hiatal hernia and a gastric ulcer that was treated. She denies any hematochezia, coffee-ground emesis, hemoptysis, hematuria, dysuria, polydipsia, chest pain, shortness of breath, seizure or syncope. Past Medical History: Significant for hepatitis C status post recent completion of therapy approxima tely 1 month ago, alcoholic cirrhosis, alcohol abuse, gastric ulcer, esophagitis, gastritis, hiatal h ernia, tobacco abuse, hysterectomy, benign breast biopsy, carpal tunnel surgery bilaterally, right sh oulder surgery, rotator cuff on the right side. Medications: See list. Allergies: ASPIRIN. Home Medications: Includes multivitamin, Timoptic eye drops, Protonix. Family History: Father of alcoholic cirrhosis. Mother of breast cancer. Social History: She is a . No children. Quit tobacco in July 2016. Positive for alcohol, jhoyn chappell. Review of Systems: The patient has hematemesis, some dark stools, unclear if it is clearly melena though. She denies an y hematochezia or coffee-ground emesis, hemoptysis, hematuria, dysuria, polydipsia, lower extremity m uscle aches, joint aches, depression, anxiety, seizure, syncope, chest pain, shortness of breath. Physical Examination: Vital Signs: The patient has a temperature of 99 degrees Fahrenheit, pulse 77, respirations 16, bloo d pressure 106/53, O2 saturation 98%. She is 5 feet 4 inches, 155 pounds, BMI of 27 kg/m2. HEENT: Normocephalic, atraumatic. Anicteric. Pupils equal, round, and reactive to light. Extraocu lar movements are intact. Oropharynx is clear. She has some slightly pale conjunctiva. Neck: Supple. No masses. Respirations: Clear to auscultation bilaterally. Cardiac: Regular rate and rhythm. Gastrointestinal: Positive bowel sounds. Soft, nontender, nondistended. No hepatosplenomegaly. Extremities: No clubbing, cyanosis or edema. 2+ pulses. Neuro: Alert and oriented x3. Grossly nonfocal. 5/5 motor sensation, intact to light light touch. Laboratory Data: The patient has a hemoglobin 8.6, down from 12.3 yesterday. White count of 6.1, he matocrit 26, MCV of 104, platelet count 75, polys 25%, lymphocytes 61%, monocytes 10%, and eosinophil s 3%. PT of 15.0, INR of 1.3. The patient has a sodium 147, potassium 3.9, chloride 114, bicarb 27, BUN of 32, creatinine of 0.7, glucose 76, calcium 8.1, magnesium 2.1, total bilirubin 1.1, AST 28, A LT of 19, alkaline phosphatase 56, rapid troponin I of 0.04. B type natriuretic peptide is 73, total protein 5.5, albumin 2.6. UA shows 3+ leukocyte esterase, 10-20 white blood cells, less than 5 squa mous epithelial cells. Trace blood. Chest x-ray, no acute cardiopulmonary process. Mild chronic in terstitial lung disease noted similar to prior chest x-ray from September 2016. Impression: 1.Hematemesis, 2 events yesterday with possible melena over the past 24 hours. Two hematemesis on S aturday, yesterday. Takes Excedrin and Tylenol. She had an event of hematemesis 1-1/2 years ago, EG D then revealed small esophageal varices, too small to band, a hiatal hernia and a gastric ulcer whic h was treated on the . 2.Urinary tract infection, antibiotic therapy. Recommendations: 1.Proceed with EGD. 2.PPI therapy. 3.Consider IV octreotide or ceftriaxone if varices are present. 4.Serial H and H, and transfuse p.r.n. Goal hemoglobin 7 varices are present. Goal 7-8. 5.IV antibiotics for urinary tract infection. CLARE/MICHELLE Voice ID: [id number] Report ID: [id number]
[2018-05-31] MEDS: NACHLORIDE 0.45% 1,000 ML IV SCH ×3 (01:10→16:47)
[2018-05-31] MEDS: PANTOPRAZOLE INJ 80 MG in NA CHLORIDE 0.9% 250 ML IV SCH ×2 (01:11→08:42)
[2018-05-31 04:38] LABS: Absolute Lymphocytes (CBC) 2.6 K/uL (0.7-4.9); Absolute Monocytes 0.4 K/uL (0.1-1.3); Absolute Neutrophil 1.4 K/uL (1.8-8.0); Basophils % 1.2 % (0-1.3); Eosinophils % 4.8 % (0-4.4); Hematocrit 23.5 % (36.0-45.0); Lymphocytes % 55.7 % (15.3-44.8); MPV 8.9 fL (7.6-11.3); Monocytes % 9.4 % (3.3-12.3); RBC Red Blood Cell Count 2.25 M/uL (3.86-4.86)
[2018-05-31 04:57] LABS: ALT/SGPT 20 U/L (12-78); AST/SGOT 30 U/L (15-37); Albumin 2.6 g/dL (3.4-5.0); Alkaline Phosphatase 59 U/L (45-117); BUN Blood Urea Nitrogen 16 mg/dL (7-18); Bicarbonate 24 mmol/L (21-32); Bilirubin Total 0.9 mg/dL (0.2-1.0); Glucose Level 79 mg/dL (74-106); Potassium 4.2 mmol/L (3.5-5.1); Protein, Total 5.5 g/dL (6.4-8.2); Sodium Level 145 mmol/L (136-145)
--- NOTE | 2018-05-31 07:59 | EKG ---
Test Date: 2018-05-29 Test Time: 10:04:52 Foiling Machine Operator: ISSA MEASUREMENT RESULTS: Intervals: Rate: 102 PA: 162 QRSD: 74 QT: 346 QTc: 450 Dyer: P: 83 PA: 162 QRS: 55 T: 74 INTERPRETIVE STATEMENTS: Sinus tachycardia Right atrial enlargement Nonspecific ST abnormality Abnormal ECG Compared to ECG 09/16/2016 15:50:03 Atrial abnormality now present ST (T wave) deviation now present Electronically Signed On 05-31-18 07:54:38 OPERATOR TECHNICIAN by Joseph Coe
[2018-05-31] MEDS ORDERED: TIMOLOL MALEATE 0.5% OPTH 5 ML BTL EACH EYE SCH (09:00)
[2018-05-31] MEDS ORDERED: GOLYTELY 4000 ML PO SCH (15:00)
[2018-05-31] MEDS: PANTOPRAZOLE 40MG TABLET PO SCH (18:00)
--- NOTE | 2018-05-31 18:01 | P.DS ---
Admission Date: 05/29/18 Discharge Date: 05/31/18 Primary Care Provider: Dr. Cormier; GI-Dr. Zepeda Disposition: ROUTINE DISCHARGE Discharge Condition: GOOD Reason for Admission: Hematemesis Consultations: GI - Problems (1) Hematemesis Onset Date: 05/31/18 Current Visit: Yes Status: Acute (2) Hepatitis C Onset Date: 09/17/16 Current Visit: No Status: Chronic (3) Upper gastrointestinal bleed Onset Date: 09/17/16 Current Visit: No Status: Acute Brief History of Present Illness: 67-year-old female presented to the emergency room with hematemesis. Patient with history of hepatitis-C and liver cirrhosis. Patient still drinks alcohol. Patient with prior history of gastric ulcer, erosive gastritis, small hiatal hernia and esophagitis. Patient reports hematemesis early today. Patient reports she started having nausea around 3:00 a.m. then again at 6:00 a.m.. Both times with hematemesis. She also reported some melena today. Patient reported some short of breath. Patient reports having a EGD done in 2017. She had a gastric ulcer noted at that time. Since that time she is being treated for hepatitis-C. She recently finished her regimen of treatment. She was told to stop her Protonix during this time. In the ER patient evaluated. Vital signs stable. Hemoglobin 12.3. White count 7.2. Patient given hit anti nausea medication. Guaiac stool was positive. Patient was admitted for further evaluation. When I saw the patient ER, she appeared stable. She was without any significant nausea. Family at bedside. Patient admits still drinking about 2- 3 glasses of wine per day. Hospital Course: Overall during the hospital stay patient remained stable Patient was initially admitted to the hospital for upper GI bleed with hematemesis. Patient was started on IV Protonix and IV fluids upon admission. GI was consulted who did a EGD for the patient patient was found to have gastritis along with duodenitis with no bleeding ulcers. Patient then was continued on Protonix trip for next 24 hr. Patient had marked improvement in her symptoms at that time. Patient Protonix strip was thus discontinued agent was switched over to oral Protonix. Patient's H&H while here in the hospital and remained stable. patient had a small bowel series done here in the hospital evaluate for lower GI bleed. Patient has had a colonoscopy in the past. Small bowel series was negative at this time. Patient does was discharged home under stable condition. Patient was recommended to get outpatient capsule endoscopy with GI patient was understanding and thus was discharged home under stable condition. Patient was given a prescription for Protonix to be taken b.i.d.. Milk of the complaints to offer. Patient was also asked to follow up with primary care provider in about 1-2 days post discharge Vital Signs/Physical Exam: Temp Pulse Resp BP Pulse Ox 98.4 F 78 24 H 111/55 L 97 05/31/18 12:00 05/31/18 12:00 05/31/18 12:00 05/31/18 12:00 05/31/18 12:00 General: Alert, In no apparent distress HEENT: Atraumatic, PERRLA, EOMI Neck: Supple, JVD not distended Respiratory: Clear to auscultation bilaterally, Normal air movement Cardiovascular: Regular rate/rhythm, Normal S1 S2 Gastrointestinal: Normal bowel sounds, No tenderness Musculoskeletal: No tenderness Integumentary: No rashes Neurological: Normal speech, Normal tone, Normal affect Lymphatics: No axilla or inguinal lymphadenopathy Laboratory Data at Discharge: WBC 4.7 K/uL (4.3-10.9) D 05/31/18 03:58 Hgb 8.0 g/dL (12.0-15.0) L 05/31/18 03:58 Hct 23.5 % (36.0-45.0) L 05/31/18 03:58 Plt Count 63 K/uL (152-406) L 05/31/18 03:58 PT 15.0 SECONDS (9.5-12.5) H 05/29/18 10:15 INR 1.27 05/29/18 10:15 Sodium 145 mmol/L (136-145) 05/31/18 03:58 Potassium 4.2 mmol/L (3.5-5.1) 05/31/18 03:58 BUN 16 mg/dL (7-18) 05/31/18 03:58 Creatinine 0.59 mg/dL (0.55-1.3) 05/31/18 03:58 Glucose 79 mg/dL (74-106) 05/31/18 03:58 Magnesium 2.0 mg/dL (1.8-2.4) 05/31/18 03:58 Total Bilirubin 0.9 mg/dL (0.2-1.0) 05/31/18 03:58 AST 30 U/L (15-37) 05/31/18 03:58 ALT 20 U/L (12-78) 05/31/18 03:58 Alkaline Phosphatase 59 U/L (45-117) 05/31/18 03:58 Home Medications: Timolol 0.5% Opth [Timoptic 0.5% Opth*] 1 drop EACH EYE DAILY 09/17/16 Travoprost [Travatan Z] 1 drop EACH EYE BID 05/29/18 Pantoprazole [Protonix Tab*] 40 mg PO BIDAC #60 tab 05/31/18 New Medications: Pantoprazole [Protonix Tab*] 40 mg PO BIDAC #60 tab Diet: Regular Activity: Ad sarah Followup: Henri Zepeda MD [ACTIVE - CAN ADMIT] - 1 Week
[2018-06-01 04:57] LABS: Absolute Lymphocytes (CBC) 2.9 K/uL (0.7-4.9); Absolute Monocytes 0.5 K/uL (0.1-1.3); Absolute Neutrophil 1.4 K/uL (1.8-8.0); Basophils % 0.7 % (0-1.3); Eosinophils % 4.2 % (0-4.4); Hematocrit 23.6 % (36.0-45.0); Lymphocytes % 57.7 % (15.3-44.8); MPV 9.2 fL (7.6-11.3); Monocytes % 9.1 % (3.3-12.3); RBC Red Blood Cell Count 2.29 M/uL (3.86-4.86)
[2018-06-01 05:10] LABS: ALT/SGPT 23 U/L (12-78); AST/SGOT 35 U/L (15-37); Albumin 2.7 g/dL (3.4-5.0); Alkaline Phosphatase 63 U/L (45-117); BUN Blood Urea Nitrogen 9 mg/dL (7-18); Bicarbonate 26 mmol/L (21-32); Bilirubin Total 0.8 mg/dL (0.2-1.0); Glucose Level 92 mg/dL (74-106); Magnesium 1.9 mg/dL (1.8-2.4); Potassium 3.9 mmol/L (3.5-5.1); Protein, Total 5.8 g/dL (6.4-8.2); Sodium Level 145 mmol/L (136-145)
[2018-06-01] MEDS ORDERED: POTASSIUM CL SA 10 MEQ TAB PO ONE (05:18)
[2018-06-01] MEDS: NACHLORIDE 0.45% 1,000 ML IV SCH (05:30)
[2018-06-01] MEDS: PANTOPRAZOLE 40MG TABLET PO SCH (07:50)
[2018-06-01 09:14] VITALS: O2SAT 97
[2018-06-01 09:27] VITALS: BP 104/61; TEMP 97.8
--- NOTE | 2018-06-01 10:01 | RAD REPORT ---
EXAM DESCRIPTION: RAD - Small Bowel Series - 05/31/2018 10:34 pm CLINICAL HISTORY: Abdominal pain, GI bleed history COMPARISON: None. FINDINGS: Secondary Education Professor film shows a nonspecific bowel gas pattern. No obstruction or free air. No suspiciou s calcifications. Gastric size and mucosal fold pattern are normal. No delay in transit of contrast into the small greta l. Small bowel is normal in diameter with no mucosal fold thickening. No intrinsic or extrinsic mass identifiable. Terminal ileum has normal appearance. Transit time to the colon is 2.5 hours. IMPRESSION: No small bowel diffuse or focal abnormality. Transit time to the colon was 2.5 hours.
== END 2018-06-01 10:42 | disposition home or self-care (01) ==
LOC: ER 09:43 → ERHOLD 12:25 → 4TH 13:58
PROVIDERS: ADMIT Family Medicine; ATTEND Family Medicine
PROC: 0DB68ZX Excision of Stomach, Via Natural or Artificial Opening Endoscopic, Diagnostic (ICD-10-PCS; principal; 2018-05-30 13:30)
DX: K92.0 Hematemesis (principal); K29.70 Gastritis, unspecified, without bleeding; K29.80 Duodenitis without bleeding; K20.9 Esophagitis, unspecified; K44.9 Diaphragmatic hernia without obstruction or gangrene; K25.9 Gastric ulcer, unspecified as acute or chronic, without hemorrhage or perforation; K70.30 Alcoholic cirrhosis of liver without ascites; B19.20 Unspecified viral hepatitis C without hepatic coma; F10.10 Alcohol abuse, uncomplicated
CPT/HCPCS: 36415 ×2; 43239; 71045; 74250; 80048; 80053 ×3; 80076; 82272; 83735 ×4; 83880; 84484; 85014 ×3; 85018 ×3; 85025 ×4; 85610; 87088; 88305; 88312; 93005; 96360; 96361; 99285; C9113 ×2; G0378 ×2; J0696 ×2; J2704; J3475; J7030 ×3; 81003; 81015; 87086

== ENCOUNTER 2020-01-25 07:29 | Day surgery (SDC) | payer OTHER ==
[2020-01-19 09:22] LABS: Absolute Lymphocytes (CBC) 2.2 K/uL (0.7-4.9); Basophils % 1.1 % (0-1.3); Hematocrit 40.9 % (36.0-45.0); Lymphocytes % 39.2 % (15.3-44.8); MPV 8.6 fL (7.6-11.3); RBC Red Blood Cell Count 4.15 M/uL (3.86-4.86)
[2020-01-19 09:35] LABS: Potassium 4.5 mmol/L (3.5-5.1)
--- NOTE | 2020-01-19 09:41 | RAD REPORT ---
EXAM DESCRIPTION: RAD - Chest Pa And Lat (2 Views) - 01/19/2020 9:33 am CLINICAL HISTORY: preop Chest pain. COMPARISON: Chest Single View dated 05/29/2018; Chest Single View dated 09/16/2016; ABDOMEN 1 VIEW KUB dated 02/09/2013; ABDOMEN 1 VIEW KUB dated 02/01/2013 FINDINGS: The lungs are clear. The heart is normal in size. No displaced fractures. IMPRESSION: No acute or concerning finding suspected.
--- OUTSIDE RECORDS SUMMARY | 2020-01-25 07:44 | XMS REPORT | Clinical Summary ---
:1950 Author Organization [facility] Address [address] [place] [address] Care Team Providers Name Role Phone Roverto Cormier MD Primary Care Provider Allergies Active Allergy Reactions Severity Noted Date Comments Aspirin Hives 02/11/2018 Medications Medication Sig Dispensed Refills Start Date End Date Status timolol (TIMOPTIC) 2 (two) times 0 01/18/2018 Active 0.5 % ophthalmic daily . solution brimonidine Apply to eye(s) 2 0 Active tartrate/timolol (two) times (COMBIGAN OPHT) daily. pantoprazole 0 05/31/2018 Active (PROTONIX) 40 MG tablet carvedilol (COREG) Take 1 tablet 30 tablet 5 12/03/20182018 6.25 MG (6.25 mg total) tabletIndications: by mouth 2 (two) Portal hypertension times daily with (HCC) breakfast and dinner for 90 days. 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 We will treat with Vosevi for 12 weeks (Among the 22 patients who had a prior t reatment failure with an NS5A inhibitor- containing regimen, 91% (20/22) achieved SVR); Discontinue PPI during the therapy Other cirrhosis of liver 02/11/2018 Last Assessment & Plan: Not biopsy proven. 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 Compensated. Will send labs to exclude other causes o f liver disease, and will check labs to calculate MELD score. Will review MRI done outside. Advised total abstinence from alcohol. Portal hypertension 02/11/2018 Last Assessment & Plan: Manifested by thrombocytopenia, and smal l esophageal varices. Will continue have variceal screening with Dr. Zepeda as per guidelines. Screening for cancer 02/11/2018 Last Assessment & Plan: Cirrhosis, regardless of etiology, is a risk factor for development of hepatocellular carcinoma. The annual incidence of HCC v brian from 1.5-7%. Thus, we recommend surveillance for HCC be performed using contrast MRI or CT imaging and alphafetoprotein every 6 months. Screening for endocrine/metabolic/immunity disorders 1 Last Assessment & Plan: Serological tests will be completed to d etermine the presence of immunity to hepatitis A and B. If found susceptible she will be referred to her primary care provider to consider the administration of the appropriate vaccines. Chronic fatigue 02/11/2018 Family History Medical History Relation Name Comments [...] travel history available. Last Filed Vital Signs Not on file Plan of Treatment Health Maintenance Due Date Last Done Comments BREAST CANCER SCREENING 1950 COLON CANCER SCREENING COLONOSCOPY 1950 PNEUMOCOCCAL 65+ LOW/MEDIUM RISK (1 of 2 - PCV13) 09/02/2016 MEDICARE ANNUAL WELLNESS (YEAR 2 or FIRST YEAR if no 09/02/2017 IPPE) INFLUENZA VACCINE (#1) 2020 Procedures Procedure Name Priority Date/Time Associated Diagnosis Comme nts BASIC METABOLIC PANEL Routine 05/16/2019 2:46 Chronic hepatit is C Results for this (7) PM THERMO PROCESSOR without hepatic coma procedu re are in (HCC) the results Other cirrhosis of section. liver (HCC) Screening for ca ncer Elevated AFP HEPATIC FUNCTION Routine 05/16/2019 2:46 Chronic hepatitis C Results for this PANEL PM THERMO PROCESSOR without hepatic coma procedu re are in (HCC) the results Other cirrhosis of section. liver (HCC) Screening for ca ncer Elevated AFP CBC W/PLT COUNT & Routine 05/16/2019 2:46 Chronic hepatitis C Results for this AUTO DIFFERENTIAL PM THERMO PROCESSOR without hepatic coma pr ocedure are in (HCC) the results Other cirrhosis of section. liver (HCC) Screening for ca ncer Elevated AFP PROTHROMBIN TIME/INR Routine 05/16/2019 2:46 Chronic hepatiti s C Results for this PM THERMO PROCESSOR without hepatic coma procedu re are in (HCC) the results Other cirrhosis of section. liver (HCC) Screening for ca ncer Elevated AFP ALPHA FETOPROTEIN Routine 05/16/2019 2:46 Chronic hepatitis C Results for this (AFP), TUMOR MARKER PM THERMO PROCESSOR without hepatic coma procedure are in (HCC) the results Other cirrhosis of section. liver (HCC) Screening for ca ncer Elevated AFP HEPATITIS C PCR, Routine 05/16/2019 2:44 Chronic hepatitis C Results for this QUANTITATIVE PM THERMO PROCESSOR without hepatic coma procedu re are in (HCC) the results Other cirrhosis of section. liver (HCC) Screening for ca ncer Elevated AFP Portal hypertension (HCC) Acute upper GI bleed after 01/24/2019 Results Alpha fetoprotein (AFP), tumor marker (05/16/2019 2:46 PM THERMO PROCESSOR) Alpha-Fetoprotein 9.0 (H) ng/mL [facility] Comment: Reference Range: <6.1 The use of AFP as a tumor marker in females is not recommended. This test was performed using the Usersnapte r chemiluminescent method. Values obtained from different assay methods cannot be used interchangeably. AFP levels, regardless of value, should not be interpreted as absolute evidence of the presence or absence of disease. Specimen Blood Narrative Performed At FASTING:UNKNOWN [facility] FASTING: UNKNOWN Resulting Agency Comment Performing Organization Information: Site ID: [id number] [facility]: [facility] Address: [address] [place] [address] Director: Dr. Roger Hinojosa e Performing Organization Address City/State/Zipcode Phone Number [facility] [address] [place] [address] [facility] Pro-time/INR (05/16/2019 2:46 PM THERMO PROCESSOR) INR 1.0 [facility] Comment: Reference Range 0.9-1.1 Moderate-intensity Warfarin Therapy 2.0-3.0 Higher-intensity Warfarin Therapy 3.0-4.0 PT 10.9 9.0 - 11.5 sec [facility] Comment: For more information on this test, go to: http://education.Crack.[employer]/faq/UDR252 Specimen Blood Narrative Performed At FASTING:UNKNOWN [facility] FASTING: UNKNOWN Resulting Agency Comment Performing Organization Information: Site ID: [id number] Name: [facility] Address: [address] [place] [id number] Director: Roger Ko Performing Organization Address [facility] Phone Number [facility] [address] [place] [address] [facility] CBC with platelet count + automated diff (05/16/2019 2:46 PM THERMO PROCESSOR) WBC 5.2 3.8 - 10.8 Thousand/uL [facility] RBC 4.16 3.80 - 5.10 Million/uL [facility] Hemoglobin 12.3 11.7 - 15.5 g/dL [facility] Hematocrit 36.9 35.0 - 45.0 % [facility] MCV 88.7 80.0 - 100.0 fL [facility] MCH 29.6 27.0 - 33.0 pg [facility] MCHC 33.3 32.0 - 36.0 g/dL [facility] RDW 13.1 11.0 - 15.0 % [facility] Platelets 135 (L) 140 - 400 Thousand/uL [facility] MPV 10.8 7.5 - 12.5 fL [facility] # Neutros 1,820 1,500 - 7,800 cells/uL [facility] # Lymphs 2,309 850 - 3,900 cells/uL [facility] # Monos 697 200 - 950 cells/uL [facility] # Eos 307 15 - 500 cells/uL [facility] # Baso 68 0 - 200 cells/uL [facility] % Neutros 35 % [facility] % Lymphs 44.4 % [facility] % Monos 13.4 % [facility] % Eos 5.9 % [facility] % Baso 1.3 % [facility] Specimen Blood Narrative Performed At FASTING:UNKNOWN [facility] FASTING: UNKNOWN Resulting Agency Comment Performing Organization Information: Site ID: [id number] Name: [facility] Address: [address] [place] [phone] Director: Roger Ko Performing Organization Address [facility]ode Phone Number [facility] [address] [place] [address] [facility] Hepatic function panel (05/16/2019 2:46 PM THERMO PROCESSOR) Protein, Total, Serum 7.8 6.1 - 8.1 g/dL [facility] Albumin 4.1 3.6 - 5.1 g/dL [facility] GLOBULIN ([facility]) 3.7 1.9 - 3.7 g/dL (calc) [facility] Albumin Globulin Ratio 1.1 1.0 - 2.5 (calc) [facility] Bilirubin, Total 0.8 0.2 - 1.2 mg/dL [facility] Bilirubin, Direct 0.2 < OR = 0.2 mg/dL [facility] Bilirubin, Indirect 0.6 0.2 - 1.2 mg/dL (calc) [facility] Alkaline Phosphatase, S 70 33 - 130 U/L [facility] AST (SGOT) 34 10 - 35 U/L [facility] ALT (SGPT) 15 6 - 29 U/L [facility] Specimen Blood Narrative Performed At FASTING:UNKNOWN [facility] FASTING: UNKNOWN Resulting Agency Comment Performing Organization Information: Site ID: [id number] Name: [facility] Address: [address] [place] [phone] Director: Roger Ko Performing Organization Address City/State/Zipcode Phone Number [facility] [address] [place] [address] [facility] Basic Metabolic Panel (05/16/2019 2:46 PM THERMO PROCESSOR) Glucose 98 65 - 99 mg/dL [facility] Comment: Fasting reference interval BUN 15 7 - 25 mg/dL [facility] Creatinine 0.70 0.50 - 0.99 mg/dL [facility] Comment: For patients >49 years of age, the reference villavicencio it for Creatinine is approximately 13% higher for p eople identified as -Citizen Of [place]. eGFR If NonAfricn Am 90 > OR = 60 [facility] mL/min/1.73m2 eGFR If Africn Am 104 > OR = 60 [facility] mL/min/1.73m2 BUN/Creatinine Ratio NOT APPLICABLE 6 - 22 (calc) [facility] Sodium 137 135 - 146 mmol/L [facility] Potassium, Serum 4.0 3.5 - 5.3 mmol/L [facility] Chloride 103 98 - 110 mmol/L [facility] Carbon Dioxide, Total 24 20 - 32 mmol/L [facility] Calcium, Serum 9.7 8.6 - 10.4 mg/dL [facility] Specimen Blood Narrative Performed At FASTING:UNKNOWN [facility] FASTING: UNKNOWN Resulting Agency Comment Performing Organization Information: Site ID: [id number] Name: [facility] Address: [address] [place] [phone] Director: Roger Ko Performing Organization Address [facility] Mex[facility]ode Phone Number [facility] [address] [place] [address] [facility] Hepatitis C PCR, Quantitative (05/16/2019 2:44 PM THERMO PROCESSOR) Hep C Pcr, Quant <15 NOT DETECTED NOT DETECTED IU/mL [facility] HCV RNA, QUANTITATIVE <1.18 NOT DETECTED NOT DETECTED Log [facility] REAL TIME PCR (Opax) Comment: IU/mL This test was performed using Real-Time Polymera se Chain Reaction. Reportable Range: 15 IU/mL to 100,000,000 IU/mL (1.18 Log IU/mL to 8.00 Log IU/mL). The analytical performance characteristics of th is assay have been determined by [facility]. The modifications have not been cleared or appro castro by the FDA. This assay has been validated pursuant to the CLIA regulations and is used for clinical purpos es. For more information on this test, go to: http://education.Crack.Aryaka [employer]/faq/FAQ22v 1 (This link is being provided for informational/ educational purposes only.) Specimen Blood Narrative Performed At FASTING:UNKNOWN [facility] FASTING: UNKNOWN Resulting Agency Comment Performing Organization Information: Site ID: [id number] Name: [facility] Address: [address] [place] [phone] Director: Dr. Roger karimi Performing Organization Address City/[facility] Mex[facility]ode Phone Number [facility] [address] [place] [address] [facility] after 01/24/2019 Insurance Payer Benefit Plan / Group Subscriber ID Type Phone A ddress MEDICARE MEDICARE A B xxxxxxxxxxx Medicare (Home) [place] [address]
--- OUTSIDE RECORDS SUMMARY | 2020-01-25 07:44 | XMS REPORT | Continuity of Care Document ---
:1950 Author Organization [facility] t Address [address] [place] [address] Care Team Providers Name Role Phone Roverto Cormier MD Primary Care Physician Lab, Fam Pob I Attending Clinician Unavailable RENETTA NAVARRO Attending Clinician Unavailable Problems Condition Condition Condition Status Onset Resolution Last Treating Co mments Source Name Details Category Date Date Treatment Clinician Date Chronic Chronic Disease Active 2017-05 [facility] hepatitis hepatitis 0-11 Assessmen [facility] - C without C without 00:00: t & Plan: M edical hepatic hepatic 00 [facility] coma coma 4, cirrhosis (compensa meño), Harvoni failure.W e will treat with Vosevi for 12 weeks(Felton ng the 22 patients who had a prior treatment failure with an NS5A inhibitor -containi ng regimen, 91% (20/22) achieved SVR);Disc ontinue PPI during the therapy Other Other Disease Active 2017-05 [facility] cirrhosis cirrhosis 0-11 Assessmen L u[facility] - of liver of liver 00:00: t & Plan: Med ical 00 Not Center biopsy proven. 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 Compensat ed.Will send labs to exclude other causes of liver disease, and will check labs to calculate MELD score. Will review MRI done outside.A dvised total abstinenc e from alcohol. Portal Portal Disease Active 2017-05 [facility] hypertensi hypertensi 0-11 [facility] - on on 00:00: t & Plan: Medical 00 Man[facility]este Center d by thrombocy topenia, and small esophagea l varices. Will continue have variceal screening with Dr. Zepeda as per guideline s. Screening Screening Disease Active 2017-05 Last [facility]3] for for 11 Assessmen [facility] - endocrine/ endocrine/ 00:00: t & Plan: Medical metabolic/ metabolic/ 00 Serologic Center immunity immunity al tests disorders disorders will be completed to determine the presence of immunity to hepatitis A and B. If found susceptib le she will be referred to her primary care provider to consider the administr ation of the appropria te vaccines. Chronic Chronic Disease Active 2017-05 [facility]3] fatigue fatigue [facility] - 00:00: Medical 00 [place] Allergies, Adverse Reactions, Alerts Allergy Allergy Status Severity Reaction(s) Onset Inactive Treating Comm ents Source Name Type Date Date Clinician Aspirin Propensi Active Hives 2017-05 [facility]3] ty to [facility] - adverse 00:00: Medical reaction 00 [place] s Family History Family Member Diagnosis Comments Start Date Stop Date Source Natural brother Leukemia [facility] Natural mother Breast cancer [facility] Social History Social Habit Start Date Stop Date Quantity Comments Source Sex Assigned At [facility] Smoking Status Start Date Stop Date Source Former smoker 2018-02-11 00:00:00 2018-02-11 00:00:00 [facility] Medications Ordered Filled Start Stop Current Ordering Indication Dosage Frequency Signature Comments Components Source Medication Medication Date Date Medication? Clinician (SIG) Name Name carvedilol 2019- No Portal 6.25mg Take 1 [facility]3] (COREG) 12-03 hypertensio tablet [facility] - 6.25 MG 00:00: 23:59 n (HCC) (6.25 mg Me dical tablet 00 :00 total) by Center mouth 2 (two) times daily with breakfast and dinner for [address] Yes [facility]28 [facility] - (PROTONIX) 00:00: Medical 40 MG 00 [place] tablet brimonidine 2017-05 Yes Q.5D Apply to I St tartrate/ti 11 eye(s) 2 [facility] - molol 11:18: (two) Medical (COMBIGAN 16 times [place] OPHT) daily. timolol Yes Q.5D 2 (two) [facility] (TIMOPTIC) 9-17 times [facility] - 0.5 % 00:00: daily . Medical ophthalmic 00 Center solution Procedures Procedure Date / Time Performed Performing Clinician Sourc e ALPHA FETOPROTEIN (AFP), 2019-05-16 14:46:00 Irene Navarro [facility] TUMOR MARKER [facility] PROTHROMBIN TIME/INR 2019-05-16 14:46:00 Irene Navarro [facility] CBC W/PLT COUNT & AUTO 2019-05-16 14:46:[address] [facility] HEPATIC FUNCTION PANEL 2019-05-16 14:46:00 Irene Navarro [facility] BASIC METABOLIC PANEL 2019-05-16 14:46:00 Irene Navarro [facility] () [facility] HEPATITIS C PCR, 2019-05-16 14:44:00 Elle Meza [facility] Plan of Care Planned Activity Planned Date Details Comments Source Future Scheduled 2020-01-03 [facility] [code = INFLUENZA Medical Ce nter VACCINE (#1)] Future Scheduled 2017-09-[address] [facility] - Test 00:00:00 WELLNESS (YEAR 2 or Medical Center FIRST YEAR if no IPPE) [code = MEDICARE ANNUAL WELLNESS (YEAR 2 or FIRST YEAR if no IPPE)] Future Scheduled 2016-09-02 PNEUMOCOCCAL [address] - Test 00:00:00 LOW/MEDIUM RISK (1 of Medica l Center 2 - PCV13) [code = PNEUMOCOCCAL 65+ LOW/MEDIUM RISK (1 of 2 - PCV13)] Future Scheduled [address] - Test 00:00:00 [facility] breast (procedure) [code = 479009768] Future Scheduled [address] [facility] - Test 00:00:00 [facility] colon (procedure) [code = 956535674] Encounters Start End Encounter Admission Attending Care Care Encounter Source Date/Time Date/Time Type Type Clinicians Facility Department ID 2019-10-19 2019-10-19 Ground Worker Lab, Adc [facility] [id number] 15:46:14 15:56:14 Visit [facility] [id number] [place] [id number] Jennifer [phone] [place] [address] [address] Results Test Description Test Time Test Comments Results Result Comments Source ALPHA FETOPROTEIN (AFP), TUMOR MARKER 2018-03-04 19:13:00 Test Item Value Reference Range Interpretation Comme nts ALPHA-FETOPROTEIN (BEAKER) (test code = 1094) 63.9 ng/mL <10.0 H BASIC METABOLIC [id number] 17:33:00 Test Item Value Reference Range Interpretation Comments SODIUM (BEAKER) 142 meq/L 136-145 (test code = 381) POTASSIUM (BEAKER) 4.2 meq/L 3.5-5.1 Specimen slightly (test code = 379) hemolyzed CHLORIDE (BEAKER) 110 meq/L 98-107 H (test code = 382) CO2 (BEAKER) (test 25 meq/L 22-29 code = 355) BLOOD UREA NITROGEN 11 mg/dL 7-21 (BEAKER) (test code = 354) CREATININE (BEAKER) 0.74 mg/dL 0.57-1.25 Specimen slightly (test code = 358) hemolyzed GLUCOSE RANDOM 98 mg/dL 70-105 (BEAKER) (test code = 652) CALCIUM (BEAKER) 9.3 mg/dL 8.4-10.2 (test code = 697) EGFR (BEAKER) (test 79 mL/min/1.73 ESTIMA MEÑO GFR IS code = 1092) sq m NOT ACCURATE CREATININE CLEARANCE IN PREDICTING GLOMERULAR FILTRATION RATE . ESTIMATED GFR I S NOT APPLICABLE FOR DIALYSIS PATIEN TS. HEPATIC FUNCTION [id number] 17:33:00 Test Item Value Reference Range Interpretation Comments TOTAL PROTEIN (BEAKER) 8.2 gm/dL 6.0-8.3 Speci men slightly (test code = 770) hemolyzed ALBUMIN (BEAKER) (test 3.4 g/dL 3.5-5.0 L Speci men slightly code = 1145) hemolyzed BILIRUBIN TOTAL 1.5 mg/dL 0.2-1.2 H Specimen sli ghtly (BEAKER) (test code = hemoly zed 377) BILIRUBIN DIRECT 0.7 mg/dL 0.1-0.5 H Specimen sl ightly (BEAKER) (test code = hemoly zed 706) ALKALINE PHOSPHATASE 157 U/L 40-150 H (BEAKER) (test code = 346) AST (SGOT) (BEAKER) 129 U/L 5-34 H Specimen slightly (test code = 353) hemolyzed ALT (SGPT) (BEAKER) 99 U/L 6-55 H Specimen slightly (test code = 347) hemolyzed PROTHROMBIN [id number] 17:11:00 Test Item Value Reference Range Interpretation Comments PROTIME (BEAKER) (test code = 14.1 seconds 11.7-14.7 759) INR (BEAKER) (test code = 370) 1.1 <=5.9 RECOMMENDED COUMADIN/WARFARIN INR THERAPY RANGESSTANDARD DOSE: 2.0 - 3.0 Includes: PROPHYLAXIS forvenous thrombosis, systemic embolization; TREATMENT for venous thrombosis and/or pulmonary embolus.HIGH RISK: Target INR is 2.5-3.5 for patients with mechanical heart valves.CBC W/PLT COUNT & AUTO DIFFERENTIAL 2018-03-04 17:10:00 Test Item Value Reference Range Interpretation Comments WHITE BLOOD CELL COUNT (BEAKER) 6.9 K/ L 3.5-10.5 (test code = 775) RED BLOOD CELL COUNT (BEAKER) 4.19 M/ L 3.93-5.22 (test code = 761) HEMOGLOBIN (BEAKER) (test code = 14.8 GM/DL 11.2-15.7 410) HEMATOCRIT (BEAKER) (test code = 44.8 % 34.1-44.9 411) MEAN CORPUSCULAR VOLUME (BEAKER) 106.9 fL 79.4-94.8 H (test code = 753) MEAN CORPUSCULAR HEMOGLOBIN 35.3 pg 25.6-32.2 H (BEAKER) (test code = 751) MEAN CORPUSCULAR HEMOGLOBIN CONC 33.0 GM/DL 32.2-35.5 (BEAKER) (test code = 752) RED CELL DISTRIBUTION WIDTH 12.5 % 11.7-14.4 (BEAKER) (test code = 412) PLATELET COUNT (BEAKER) (test code 76 K/CU MM 150-450 L = 756) MEAN PLATELET VOLUME (BEAKER) 11.6 fL 9.4-12.3 (test code = 754) NUCLEATED RED BLOOD CELLS (BEAKER) 0 /100 WBC 0-0 (test code = 413) NEUTROPHILS RELATIVE PERCENT 39 % (BEAKER) (test code = 429) LYMPHOCYTES RELATIVE PERCENT 44 % (BEAKER) (test code = 430) MONOCYTES RELATIVE PERCENT 11 % (BEAKER) (test code = 431) EOSINOPHILS RELATIVE PERCENT 5 % (BEAKER) (test code = 432) BASOPHILS RELATIVE PERCENT 1 % (BEAKER) (test code = 437) NEUTROPHILS ABSOLUTE COUNT 2.71 K/ L 1.56-6.13 (BEAKER) (test code = 670) LYMPHOCYTES ABSOLUTE COUNT 3.07 K/ L 1.18-3.74 (BEAKER) (test code = 414) MONOCYTES ABSOLUTE COUNT (BEAKER) 0.74 K/ L 0.24-0.36 H (test code = 415) EOSINOPHILS ABSOLUTE COUNT 0.32 K/ L 0.04-0.36 (BEAKER) (test code = 416) BASOPHILS ABSOLUTE COUNT (BEAKER) 0.06 K/ L 0.01-0.08 (test code = 417) IMMATURE GRANULOCYTES-RELATIVE 0 % 0-1 PERCENT (BEAKER) (test code = 2801) LIVER FIBROSIS, FIBROTEST-ACTITEST [id number] 12:13:00 Test Item Value Reference Range Interpretation Comments FIBROSIS SCORE (QUEST) (test code = 5637631) FIBROSIS STAGE (QUEST) (test code = 6801564) FIBROSIS INTERPRETATION (QUEST) (test code = 5980382) NECROINFLAMMAT ACTIVITY GRADE ([facility]) (test code = 3972383) NECROINFLAMMAT INTERP (QUEST) (test code = 8554543) BILIRUBIN, TOTAL (QUEST) (test code = 9710639) GGT (QUEST) (test code = 2618559) ALT (SGPT) (QUEST) (test code = 1530692) ALPHA 2 MACROGLOBULIN (QUEST) (test code = 5953875) HAPTOGLOBIN (QUEST) (test code = 9469543) APOLIPOPROTEIN A-1 (QUEST) (test code = 5891477) NECROINFLAMMAT ACTIVITY SCORE (test code = 0459007) HEPATITIS C PCR, [id number] 07:21:00 Test Item Value Reference Range Interpretation Comments HCV NUMERIC RESULT (BEAKER) [id number] IU/mL <15 H (test code = 2700) This test uses a Real-Time Polymerase Chain Reaction (RT-PCR) methodology and was performed using SURI Ampliprep/SURI TaqMan HCV test kit version 2.0 ([employer]).Reportable range for this assay is 15 - 100,000,000 IU per mL (1.18 - 8.00 Log IU/mL).ANTI-NUCLEAR ANTIBODY (KELSIE) 2018-02-12 04:12:00 Test Item Value Reference Range Interpretation Comments ANTI-NUCLEAR ANTIBODY (KELSIE) (BEAKER) Negative Negative (test code = 418) Test performed by IFA method.Test performed by IFA method.[id number] 16:00:00 Test Item Value Reference Range Interpretation Comments FERRITIN (BEAKER) (test code = 361) 554 ng/mL 5-275 H [id number] 15:39:00 Test Item Value Reference Range Interpretation Comments THYROID STIMULATING HORMONE 2.44 uIU/mL 0.35-4.94 (BEAKER) (test code = 772) HEPATITIS C [id number] 15:23:00 Test Item Value Reference Range Interpretation Comments HEPATITIS C ANTIBODY (BEAKER) (test Reactive Nonreactive A code = 367) HEPATITIS B SURFACE [id number] 15:19:00 Test Item Value Reference Range Interpretation Comments HEPATITIS B SURFACE ANTIBODY < mIU/mL <8.0 (BEAKER) (test code = 647) HEPATITIS A ANTIBODY, [id number] 15:19:00 Test Item Value Reference Range Interpretation Comments HEPATITIS A IGG ANTIBODY (BEAKER) Reactive Nonreactive A (test code = 2797) HEPATITIS B SURFACE [id number] 15:17:00 Test Item Value Reference Range Interpretation Comments HEPATITIS B SURFACE ANTIGEN (2) Nonreactive Nonreactive (BEAKER) (test code = 2585) HIV-1 ANTIGEN WITH HIV-1/2 [id number] 15:17:00 Test Item Value Reference Range Interpretation Comments HIV-1 ANTIGEN WITH HIV 1\T\2 Nonreactive Nonreactive ANTIBODY (2) (BEAKER) (test code = 2586) ALPHA FETOPROTEIN (AFP), TUMOR [id number] 15:12:00 Test Item Value Reference Range Interpretation Comments ALPHA-FETOPROTEIN (BEAKER) (test 124.0 ng/mL <10.0 H code = 1094) HEPATITIS A ANTIBODY, [id number] 15:12:00 Test Item Value Reference Range Interpretation Comments HEPATITIS A IGM ANTIBODY (BEAKER) Nonreactive Nonreactive (test code = 498) HEPATITIS B CORE ANTIBODY, [id number] 15:12:00 Test Item Value Reference Range Interpretation Comments HEPATITIS B CORE TOTAL ANTIBODY Nonreactive Nonreactive (BEAKER) (test code = 497) [id number] 14:53:00 Test Item Value Reference Range Interpretation Comments ALPHA-1 ANTITRYPSIN (BEAKER) 178.80 mg/dL 90.00-200.00 (test code = 502) COMPREHENSIVE METABOLIC [id number] 14:52:00 Test Item Value Reference Range Interpretation Comments TOTAL PROTEIN 9.0 gm/dL 6.0-8.3 H (BEAKER) (test code = 770) ALBUMIN (BEAKER) 3.6 g/dL 3.5-5.0 (test code = 1145) ALKALINE PHOSPHATASE 141 U/L 40-150 (BEAKER) (test code = 346) BILIRUBIN TOTAL 1.7 mg/dL 0.2-1.2 H (BEAKER) (test code = 377) SODIUM (BEAKER) (test 139 meq/L 136-145 code = 381) POTASSIUM (BEAKER) 4.0 meq/L 3.5-5.1 (test code = 379) CHLORIDE (BEAKER) 106 meq/L 98-107 (test code = 382) CO2 (BEAKER) (test 27 meq/L 22-29 code = 355) BLOOD UREA NITROGEN 11 mg/dL 7-21 (BEAKER) (test code = 354) CREATININE (BEAKER) 0.69 mg/dL 0.57-1.25 (test code = 358) GLUCOSE RANDOM 85 mg/dL 70-105 (BEAKER) (test code = 652) CALCIUM (BEAKER) 9.6 mg/dL 8.4-10.2 (test code = 697) AST (SGOT) (BEAKER) 175 U/L 5-34 H (test code = 353) ALT (SGPT) (BEAKER) 125 U/L 6-55 H (test code = 347) EGFR (BEAKER) (test 85 mL/min/1.73 ESTIMA MEÑO GFR IS code = 1092) sq m NOT ACCURATE CREATININE CLEARANCE IN PREDICTING GLOMERULAR FILTRATION RATE . ESTIMATED GFR I S NOT APPLICABLE FOR DIALYSIS PATIEN TS. BILIRUBIN, [id number] 14:52:00 Test Item Value Reference Range Interpretation Comments BILIRUBIN DIRECT (BEAKER) (test 0.8 mg/dL 0.1-0.5 H code = 706) IRON, TIBC, % SAT. (WITHOUT FERRITIN)2018-02-11 14:51:00 Test Item Value Reference Range Interpretation Comments IRON (BEAKER) (test code = 547) 218 ug/dL 40-160 H TOTAL IRON BINDING CAPACITY 343 ug/dL 250-450 (BEAKER) (test code = 769) IRON % SATURATION (2) (BEAKER) 64 % 20-55 H (test code = 2590) PROTHROMBIN [id number] 14:31:00 Test Item Value Reference Range Interpretation Comments PROTIME (BEAKER) (test code = 15.4 seconds 11.7-14.7 H 759) INR (BEAKER) (test code = 370) 1.2 <=5.9 RECOMMENDED COUMADIN/WARFARIN INR THERAPY RANGESSTANDARD DOSE: 2.0 - 3.0 Includes: PROPHYLAXIS forvenous thrombosis, systemic embolization; TREATMENT for venous thrombosis and/or pulmonary embolus.HIGH RISK: Target INR is 2.5-3.5 for patients with mechanical heart valves.CBC W/PLT COUNT & AUTO DIFFERENTIAL 2018-02-11 14:29:00 Test Item Value Reference Range Interpretation Comments WHITE BLOOD CELL COUNT (BEAKER) 5.0 K/ L 3.5-10.5 (test code = 775) RED BLOOD CELL COUNT (BEAKER) 4.35 M/ L 3.93-5.22 (test code = 761) HEMOGLOBIN (BEAKER) (test code = 15.1 GM/DL 11.2-15.7 410) HEMATOCRIT (BEAKER) (test code = 45.1 % 34.1-44.9 H 411) MEAN CORPUSCULAR VOLUME (BEAKER) 103.7 fL 79.4-94.8 H (test code = 753) MEAN CORPUSCULAR HEMOGLOBIN 34.7 pg 25.6-32.2 H (BEAKER) (test code = 751) MEAN CORPUSCULAR HEMOGLOBIN CONC 33.5 GM/DL 32.2-35.5 (BEAKER) (test code = 752) RED CELL DISTRIBUTION WIDTH 12.1 % 11.7-14.4 (BEAKER) (test code = 412) PLATELET COUNT (BEAKER) (test code 83 K/CU MM 150-450 L = 756) MEAN PLATELET VOLUME (BEAKER) 11.5 fL 9.4-12.3 (test code = 754) NUCLEATED RED BLOOD CELLS (BEAKER) 0 /100 WBC 0-0 (test code = 413) NEUTROPHILS RELATIVE PERCENT 30 % (BEAKER) (test code = 429) LYMPHOCYTES RELATIVE PERCENT 47 % (BEAKER) (test code = 430) MONOCYTES RELATIVE PERCENT 13 % (BEAKER) (test code = 431) EOSINOPHILS RELATIVE PERCENT 8 % (BEAKER) (test code = 432) BASOPHILS RELATIVE PERCENT 1 % (BEAKER) (test code = 437) NEUTROPHILS ABSOLUTE COUNT 1.47 K/ L 1.56-6.13 L (BEAKER) (test code = 670) LYMPHOCYTES ABSOLUTE COUNT 2.36 K/ L 1.18-3.74 (BEAKER) (test code = 414) MONOCYTES ABSOLUTE COUNT (BEAKER) 0.66 K/ L 0.24-0.36 H (test code = 415) EOSINOPHILS ABSOLUTE COUNT 0.41 K/ L 0.04-0.36 H (BEAKER) (test code = 416) BASOPHILS ABSOLUTE COUNT (BEAKER) 0.07 K/ L 0.01-0.08 (test code = 417) IMMATURE GRANULOCYTES-RELATIVE 0 % 0-1 PERCENT (BEAKER) (test code = 7356)
[2020-01-25] MEDS: Ringers Lactate 1,000 ML IV ONE ×2 (07:58→08:55)
[2020-01-25] MEDS ORDERED: CEFAZOLIN/SWI 1gm 1 GM/10 ML SYR ONE (08:02)
[2020-01-25] MEDS ORDERED: LIDOCAINE 2% MPF 5 ML VIAL ONE (08:22)
[2020-01-25] MEDS ORDERED: FENTANYL CITR 100 MCG/2 ML ONE (08:22)
[2020-01-25] MEDS ORDERED: MIDAZOLAM HCL 2 MG/2 ML INJ ONE (08:22)
[2020-01-25] MEDS ORDERED: propofoL 200 MG/20 ML VIAL IV ONE (08:22)
[2020-01-25] MEDS ORDERED: BUPIVACAINE 0.25% PF 10 ML VIAL ONE (08:47)
[2020-01-25] MEDS ORDERED: dexAMETHasone 10 MG/ML VIAL ONE (09:18)
--- NOTE | 2020-01-25 09:58 | P.BOP ---
Preoperative diagnosis: left hand ring finger trigger digit Postoperative diagnosis: same, left hand ring finger flexor tendon sheath shemar glion cyst Primary procedure: left hand ring finger A1 sabiha release Secondary procedure: left hand ring finger ganglion cyst excision Line Ordering Clinician: NONE,NONE Estimated blood loss: <5 cc Specimen: left ring finger ganglion cyst Findings: see dictation Anesthesia: General Complications: None Implants: none Fluids & blood products: per anesthesia record; TT: 22 mins @ 250 mmHg Transferred to: Recovery Room Condition: Good
[2020-01-25] MEDS: MORPHINE 4 MG/ML SYR ONE ×2 (10:10→10:15)
[2020-01-25] MEDS ORDERED: ONDANSETRON 4 MG/2 ML VIAL ONE (10:20)
[2020-01-25] MEDS ORDERED: MORPHINE 4 MG/ML SYR ONE (10:32)
[2020-01-25 13:28] VITALS: BP 143/77; TEMP 97.6; O2SAT 93
--- NOTE | 2020-01-26 23:51 | OP ---
Date of Procedure: 01/25/2020 Surgeon: Nikita Crockett MD Preoperative Diagnosis: Left hand ring finger trigger digit. Postoperative Diagnoses: 1.Left hand ring finger trigger digit. 2.Left hand ring finger flexor tendon sheath ganglion cyst. Procedure Performed: 1.Left hand ring finger A1 sabiha release. 2.Left hand ring finger ganglion cyst excision. Anesthesia: General laryngeal mask airway. Fluids: Per Anesthesia record. Estimated Blood Loss: Less than 5 cc. Tourniquet Time: 22 minutes at 250 mmHg. Complications: None. Implants: None. Specimens: The left ring finger ganglion cyst. Indication For Procedure: Ms. Reyes is a 69-year-old female presented to my clinic with signs and symptoms consistent with left hand ring finger trigger digit and the patient failed conservative maurice tment measures including corticosteroid injections and reported continued pain and difficulties with activities of daily living. I discussed with the patient at length risks and benefits associated wit h operative and nonoperative treatment. She expressed understanding and then elected to proceed with operative treatment. Description Of Procedure: After informed consent was obtained, the patient was identified in the pre operative holding area. The left hand ring finger was marked. The patient was then taken back to [facility] operating room, transferred to the operating table in a supine fashion, and placed under general la ryngeal mask airway anesthesia. The left upper extremity was then prepped and draped in the usual st erile fashion. A time-out was initiated. The correct patient and procedure were confirmed and ident ified. The patient did receive preoperative prophylactic antibiotics. Approximately 1.5 cm incision was made centered over the left hand ring finger A1 sabiha. Dissection was taken down into the flex or tendon sheath using tenotomies and Ragnell for blunt dissection. Once we were at the level of the flexor tendon sheath, there was noted to be approximately a 5 mm cyst just superficial to the flexor tendon sheath. It was dissected and the stalk was noted to come from the A1 sabiha. It was excised and the stalk was cauterized using bipolar cautery. A1 sabiha was released and was then performed u sing a 15 blade. Flexor tendons were then brought through the incision using a Ragnell and endorsed full excursion of the tendons without any triggering. The wound was then irrigated thoroughly with n ormal saline. The cyst was then sent to Pathology for her evaluation. The skin was then approximate d using a 5-0 Prolene. Sterile dressings were applied. Tourniquet was let down. The patient was aw akened and transferred to post-anesthesia care unit in stable condition. Postoperative Plan: She will be nonweightbearing of her left hand. She will work on range of motion of her left hand ring finger. Follow up in 1 week for wound check and suture removal. ELYSSA/MICHELLE Voice ID: [id number] Report ID: [id number]
== END 2020-01-25 11:30 | disposition home or self-care (01) ==
LOC: OR 07:29
PROVIDERS: ATTEND Orthopaedic Surgery Sports Medicine
PROC: 0LN80ZZ Release Left Hand Tendon, Open Approach (ICD-10-PCS; 2020-01-25)
PROC: 0LB80ZZ Excision of Left Hand Tendon, Open Approach (ICD-10-PCS; principal; 2020-01-25 09:00)
DX: M65.342 Trigger finger, left ring finger (principal); M67.442 Ganglion, left hand; I10 Essential (primary) hypertension; H40.9 Unspecified glaucoma; Z20.828 Contact with and (suspected) exposure to other viral communicable diseases; Z87.891 Personal history of nicotine dependence
CPT/HCPCS: 93005; 85025; 80048; 36415; 85610; 88304; 85730; 71046; 26160; 26055; U0002; J2704; J2250; J3010; J1100; J0690; J7120; J2405